=== PATIENT | female | born 1970 | race American Indian/Alaskan Native ===

== ENCOUNTER 2018-02-22 09:17 | Inpatient (IN) | payer MEDICAID ==
[2018-02-22 09:28] VITALS: BMI 28.1
--- NOTE | 2018-02-22 09:30 | C.PDOC ---
History Of Present Illness 48 y/o female with history of HTN and TIA presents to ED with c/o blurry vision, headache, lightheadedness, right arm numbness and chest pain since 7am today. Patient states she is compliant with medications, reports symptoms similar to previous TIA. Patient denies head trauma, nausea, vomiting, abdominal pain or any other complaints at this time. Time Seen by Provider: 02/22/18 09:20 Chief Complaint (Nursing): Chest Pain History Per: Patient History/Exam Limitations: no limitations Onset/Duration Of Symptoms: Days Current Symptoms Are (Timing): Still Present Past Medical History Reviewed: Historical Data, Nursing Documentation, Vital Signs - Medical History PMH: Asthma, HTN, TIA Surgical History: No Surg Hx Family History: States: No Known Family Hx - Social History Hx Alcohol Use: No Hx Substance Use: No - Immunization History Hx Tetanus Toxoid Vaccination: No Hx Influenza Vaccination: No Hx Pneumococcal Vaccination: No Review Of Systems Constitutional: Negative for: Fever, Chills Eyes: Positive for: Vision Change (blurry vision) Cardiovascular: Positive for: Chest Pain, Light Headedness Respiratory: Negative for: Cough, Shortness of Breath Gastrointestinal: Negative for: Nausea, Vomiting, Abdominal Pain Neurological: Positive for: Numbness (right arm), Headache. Negative for: Weakness, Incoordination, Change in Speech, Confusion Physical Exam - Physical Exam Appears: Non-toxic, No Acute Distress Skin: Warm, Dry, No Rash Head: Atraumatic, Normacephalic Eye(s): bilateral: Normal Inspection (No nystagmus) Oral Mucosa: Moist Neck: Supple Cardiovascular: Rhythm Regular Respiratory: Normal Breath Sounds, No Rales, No Rhonchi, No Wheezing Gastrointestinal/Abdominal: Soft, No Tenderness, No Guarding, No Rebound Back: Normal Inspection, No CVA Tenderness Extremity: Normal ROM, Capillary Refill (<2 seconds), No Deformity Extremity: Bilateral: Atraumatic Pulses: Left Dorsalis Pedis: Normal, Right Dorsalis Pedis: Normal Neurological/Psych: Oriented x3, Normal Speech, Normal Cognition, Normal Cranial Nerves, No Cerebellar Signs, Normal Motor, Normal Sensation, Other (Finger to nose normal, No focal deficits) Extremity: Right: No Drift, Left: No Drift, Upper: No Drift, Lower: No Drift ED Course And Treatment - Laboratory Results Result Diagrams: 02/22/18 09:48 02/22/18 09:48 ECG: Interpreted By Me, Viewed By Me ECG Rhythm: Sinus Rhythm Rate From EC (BPM) O2 Sat by Pulse Oximetry: 100 (RA) NIHSS Stroke Scale - Date/Time Evaluation Performed When Was NIHSS Performed: Baseline - How Severe is the Stoke Level of Consciousness: 0=Alert LOC to Questions: 0=Both comments correct LOC to commands: 0=Obeys both correctly Best Gaze: 0=Normal Visual: 0=No visual loss Facial: 0=Normal Motor Arm - Left: 0=No drift Motor Arm - Right: 0=No drift Motor Leg - Left: 0=No drift Motor Leg - Right: 0=No drift Limb Ataxia: 0=Absent Sensory: 0=Normal Best Language: 0=No aphasia Dysarthia: 0=Normal articulation Extinction & Inattention (Neglect): 0=Normal, no object Score: 0 Severity Of Stroke: 0= No Stroke Medical Decision Making Medical Decision Makin yr old F w/ hx of HTN, TIA p/w numbness, lightheadedness, parathesia to R hand similiar to previous TIA per PT. On exam NIHSS 0: no appreciable neuro deficits noted. Given Hx, and similiar feeling code stroke called. Pt notes she woke up like this. No dysarthia, dysphagia or odynophagia. No tremor, weakness or cerebellar abnl. No meningeal signs. Plan: Code stroke protocol initiated, CT head, ECG, Blood work, ECG ordered Progress: 9:45am- Spoke to Dr. Staley, requests patient have MRI with out contrast CT head w/o contrast IMPRESSION: No intracranial hemorrhage or mass effect. Right ethmoid and superior maxillary sinus inflammatory changes. Partial visualization of left sided sinus surgery changes 1121 MRI: Concern for MS: paged Dr. STALEY (Neuro) No indication for TPA given LOW NIHSS, and alt diagnosis of MS. Xray unremarkable. appreciate consult w/ Dr. Staley: to ab admitted for w/u for MS: we are to order mri w/ gila + lyme titers. labs otherwise unremarkable dr. hay Webb is primary. paged hospitalist distribution district supervisor [id number] appreciate consult w/ Hospitalist Dr. Ndiaye: accepts to her service for further w/u pt agreeable and in NAD. Disposition - Disposition Disposition: HOSPITALIZED Disposition Time: 12:06 Condition: GOOD - Clinical Impression Clinical Impression: Numbness and tingling - Scribe Statement The provider has reviewed the documentation as recorded by the Lolitaibmelvi Hercules All medical record entries made by the Migel were at my direction and personally dictated by me. I have reviewed the chart and agree that the record accurately reflects my personal performance of the history, physical exam, medical decision making, and the department course for this patient. I have also personally directed, reviewed, and agree with the discharge instructions and disposition.
[2018-02-22 09:54] LABS: BASO % 0.6 % (0.0-2.0); EOS # 0.1 K/uL (0.0-0.7); EOS % 3.2 % (0.0-4.0); HEMOGLOBIN 12.4 g/dL (11.0-16.0); LYMPH # 1.6 K/uL (1.0-4.3); LYMPH % 36.9 % (20.0-40.0); MEAN CELL VOLUME 92.1 fL (81.0-99.0); MEAN CORPUSCULAR HEMOGLOBIN 31.1 pg (27.0-31.0); MEAN CORPUSCULAR HGB CONC 33.8 g/dL (33.0-37.0); MEAN PLATELET VOLUME 9.1 fL (7.2-11.7); MONO # 0.3 K/uL (0.0-0.8); MONO % 5.9 % (0.0-10.0); NEUT # 2.3 K/uL (1.8-7.0); NEUT % 53.4 % (50.0-75.0); NRBC % 0.1 % (0.0-2.0); WHITE BLOOD COUNT 4.3 K/uL (4.8-10.8)
[2018-02-22 10:02] LABS: INR 1.1; PROTHROMBIN TIME 11.9 SECONDS (9.7-12.2)
--- NOTE | 2018-02-22 10:05 | CT ---
Date of service: 02/22/2018 PROCEDURE: CT HEAD WITHOUT CONTRAST. HISTORY: Code Stroke COMPARISON: 10/23/2015 TECHNIQUE: Axial computed tomography images were obtained through the head/brain without intravenous contrast. Radiation dose: Total exam DLP = 925.76 mGy-cm. This CT exam was performed using one or more of the following dose reduction techniques: Automated exposure control, adjustment of the mA and/or kV according to patient size, and/or use of iterative reconstruction technique. FINDINGS: HEMORRHAGE: No intracranial hemorrhage. BRAIN: No mass effect or edema. No atrophy or chronic microvascular ischemic changes. VENTRICLES: Unremarkable. No hydrocephalus. CALVARIUM: Unremarkable. PARANASAL SINUSES: Right ethmoidal sinus and probably partial superior right maxillary sinus inflammatory changes. Prior report noted left surgical changes over antrum. This portion of the left antrum is not visually included on this exam. MASTOID AIR CELLS: Unremarkable as visualized. No inflammatory changes. OTHER FINDINGS: None. IMPRESSION: No intracranial hemorrhage or mass effect. Right ethmoid and superior maxillary sinus inflammatory changes. Partial visualization of left sided sinus surgery changes
[2018-02-22 10:56] LABS: ALB/GLOB RATIO 1.3 (1.0-2.1); ALBUMIN 4.5 g/dL (3.5-5.0); ALT/SGPT 20 U/L (9-52); AST/SGOT 27 U/L (14-36); BLOOD UREA NITROGEN 17 mg/dL (7-17); CALCIUM 9.5 mg/dl (8.6-10.4); GFR NON-AFRICAN AMERICAN > 60; HDL CHOLESTEROL 47 mg/dL (30-70); LDL CHOLESTEROL 98 mg/dL (0-129)
--- NOTE | 2018-02-22 11:23 | MRI ---
Date of service: 02/22/2018 PROCEDURE: MRI BRAIN WITHOUT CONTRAST HISTORY: History of TIA. Right arm numbness. COMPARISON: Comparison made with CT scan of the brain obtained earlier same day comparison also made with prior MRI of the brain 10/24/2015. TECHNIQUE: Multiplanar, multisequence MR the images of the brain were obtained without intravenous contrast enhancement. FINDINGS: HEMORRHAGE: No acute parenchymal, subarachnoid nor extra-axial hemorrhage. No evidence of hemosiderin deposition identified on gradient echo weighted sequence.. DWI: No evidence of an acute or early subacute infarction seen on diffusion imaging. BRAIN PARENCHYMA: There are multiple small round and elliptical shaped focal areas of increased T2 signal seen scattered about the subcortical and to a lesser degree deep as well as periventricular (perifrontal horn) white matter bilaterally. These changes are nonspecific and although on could be vascular in origin, the possibility of a demyelinating disease process such as multiple sclerosis should be considered. Additional differential diagnostic considerations would include sequela of old trauma, migraine headaches or post infectious/inflammatory etiologies. No obvious parenchymal nor extra-axial mass or collection seen on this noncontrast study. VENTRICLES: No obstructive hydrocephalus. CRANIUM: Unremarkable. ORBITS: Orbits and contents grossly unremarkable. PARANASAL SINUSES/MASTOIDS: Suspect partial bilateral ethmoidectomy changes. Clinical correlation with surgical history is recommended.. There appears to be partial opacification right and possibly to a lesser degree few left-sided mastoid air cells. VASCULAR SYSTEM: Visualized major vascular flow voids at skull base patent. OTHER FINDINGS: None. IMPRESSION: No acute intracranial hemorrhage or infarct. There are numerous small focal areas of increased T2 signal scattered about the subcortical and to a lesser degree deep/periventricular white matter with minimal slightly confluent prolonged T2 signal changes in the periventricular (perifrontal horn) white matter. Rule out a demyelinating disease process such as multiple sclerosis. Additional differential diagnostic considerations would include chronic sequela of small vessel disease, old trauma, migraine headaches or post infectious/inflammatory etiologies.
--- NOTE | 2018-02-22 11:45 | RAD ---
Date of service: 02/22/2018 HISTORY: Code Stroke COMPARISON: Comparison chest 10/23/2015. FINDINGS: LUNGS: Poor inspiration with low lung volumes, mild crowded bronchovascular markings and mild bibasilar atelectasis.. PLEURA: No significant pleural effusion identified, no pneumothorax apparent. CARDIOVASCULAR: No aortic atherosclerotic calcification present. Normal cardiac size. No pulmonary vascular congestion. OSSEOUS STRUCTURES: No significant abnormalities. VISUALIZED UPPER ABDOMEN: Normal. OTHER FINDINGS: None. IMPRESSION: Poor inspiration with low lung volumes, mild crowded bronchovascular markings and mild bibasilar atelectasis...
[2018-02-22] MEDS ORDERED: Gadodiamide 287 mg/ml 20 ml IV ONE (13:40)
--- NOTE | 2018-02-22 14:30 | CP.PCM.HP ---
History of Present Illness - History of Present Illness History of Present Illness: Jinny Hernandez PGY1 H&P Pt is a 48yo F with PMH HTN and TIA (10/30) who presents to ED complaining of chest pain, and blurry vision since 7am this morning. She describes the chest pain as pressure like, rates it 8/10, and reports associated palpitations, shortness of breath, and nausea. She denies radiation of the pain. She says the chest pain has improved but not remitted entirely. She also complains of a pounding headache that she rated 7/10, that began 3 days ago but worsened this morning along with the other symptoms. She did not take any medication at home to relieve the symptoms, and reports continuation of the headache now. She reports previous history of those symptoms, last being 10/30 when she was dx with TIA. She reports blurry vision b/l, but denies previous history of this. She also reports a right sided facial droop, dysphagia, and numbness and tingling in her right arm and all the way down her right leg. She also reports right hand tightness. She denies any slurred speech, gait disturbances, loss of c onsciousness. She denies abdominal pain, diarrhea, dysuria, incontinence. In the ED, EKG showed NSR, CXR showed no active disease. Pt was given ASA 325mg. CT head showed no hemmorhage, but showed some nonspecific inflammation of R ethymoid and superior maxillary sinuses. MRI brain w/o contrast showed increased density in subcortical and periventricular white matter. SxH: FamH: mom- breast CA, heart disease SocH: denies tobacco, etoh, recreational drug use Allergies: NKDA Meds: metoprolol succinate 100 daily, lasix 20 daily, valsartan/HCTZ 160/12.5 daily, atorvastatin 10 daily, ASA 325 daily, multivitamin PMD: Virgil Present on Admission - Present on Admission Any Indicators Present on Admission: No Review of Systems - Review of Systems Review of Systems: as per HPI Past Patient History - Infectious Disease Hx of Infectious Diseases: None - Past Medical History & Family History Past Medical History?: Yes - Past Social History Smoking Status: Never Smoked - CARDIAC Hx Hypertension: Yes - PULMONARY Hx Asthma: Yes - NEUROLOGICAL Hx Transient Ischemic Attacks (TIA): Yes - HEENT Hx HEENT Problems: No Other/Comment: Wears Glasses - RENAL Hx Chronic Kidney Disease: No - ENDOCRINE/METABOLIC Hx Endocrine Disorders: No - HEMATOLOGICAL/ONCOLOGICAL Hx Blood Disorders: No - INTEGUMENTARY Hx Dermatological Problems: No - MUSCULOSKELETAL/RHEUMATOLOGICAL Hx Musculoskeletal Disorders: No Hx Falls: No - GASTROINTESTINAL Hx Gastrointestinal Disorders: No - GENITOURINARY/GYNECOLOGICAL Hx Genitourinary Disorders: No - PSYCHIATRIC Hx Substance Use: No - SURGICAL HISTORY Hx Surgeries: Yes Hx Section: Yes - ANESTHESIA Hx Anesthesia: Yes Meds Allergies/Adverse Reactions: Allergies Allergy/AdvReac Type Severity Reaction Status Date / Time No Known Allergies Allergy Verified 02/22/18 09:29 Physical Exam - Constitutional Appears: Well, No Acute Distress - Head Exam Head Exam: ATRAUMATIC, NORMOCEPHALIC - Eye Exam Eye Exam: EOMI, PERRL Pupil Exam: NORMAL ACCOMODATION Additional comments: nystagmus - Expanded Eye Exam Expanded Visual Acuity Right=20/: 100 Visual Acuity Left=20/: 70 - ENT Exam ENT Exam: Mucous Membranes Moist, Normal Exam - Neck Exam Neck exam: Positive for: Normal Inspection - Respiratory Exam Respiratory Exam: Clear to Auscultation Bilateral, NORMAL BREATHING PATTERN. absent: Rales, Rhonchi, Wheezes, Respiratory Distress - Cardiovascular Exam Cardiovascular Exam: REGULAR RHYTHM. absent: Gallop, Rubs, +S1, +S2, Systolic Murmur Additional comments: tenderness to palpation of left chest - GI/Abdominal Exam GI & Abdominal Exam: Normal Bowel Sounds, Soft. absent: Distended, Tenderness - Extremities Exam Extremities exam: Positive for: normal inspection. Negative for: pedal edema - Back Exam Back exam: NORMAL INSPECTION - Neurological Exam Neurological exam: Alert, Motor Sensory Deficit, Oriented x3, Reflexes Normal - Expanded Neurological Exam Expanded Cranial nerves: EOM's Intact: Normal, Facial Sensation: Abnormal Right, Nystagmus: Abnormal Left, Abnormal Right, Tongue Deviation: Normal Cerebellar Function: Finger to Nose: Normal Sensory exam: Lower Extremity Light Touch: Abnormal Right, Upper Extremity Light Touch: Abnormal Right Neuro motor strength exam: Left Upper Extremity: 5, Right Upper Extremity: 5, Left Lower Extremity: 5, Right Lower Extremity: 4 DTR: Brachioradialis Left: 2+, Brachioradialis Right: 2+, Tricep Left: 2+, Tricep Right: 2+ - Skin Skin Exam: Normal Color Results - Vital Signs Recent Vital Signs: Last Vital Signs Temp 97.9 F 02/22/18 13:00 Pulse 67 02/22/18 13:00 Resp 18 02/22/18 13:00 BP 145/86 02/22/18 13:00 Pulse Ox 98 02/22/18 13:00 - Labs Result Diagrams: 02/22/18 09:48 02/22/18 09:48 Labs: Laboratory Results - last 24 hr 02/22/18 02/22/18 02/22/18 09:43 09:48 09:48 WBC 4.3 L RBC 4.00 Hgb 12.4 Hct 36.8 MCV 92.1 MCH 31.1 H MCHC 33.8 RDW 15.0 H Plt Count 212 MPV 9.1 Neut % (Auto) 53.4 Lymph % (Auto) 36.9 Crane % (Auto) 5.9 Eos % (Auto) 3.2 Baso % (Auto) 0.6 Neut # (Auto) 2.3 Lymph # (Auto) 1.6 Crane # (Auto) 0.3 Eos # (Auto) 0.1 Baso # (Auto) 0.0 PT 11.9 INR 1.1 APTT 31 Sodium Potassium Chloride Carbon Dioxide Anion Gap BUN Creatinine Est GFR ( Amer) Est GFR (Non-Af Amer) POC Glucose (mg/dL) 101 Random Glucose Hemoglobin A1c Calcium Total Bilirubin AST ALT Alkaline Phosphatase Troponin I Total Protein Albumin Globulin Albumin/Globulin Ratio Triglycerides Cholesterol LDL Cholesterol Direct HDL Cholesterol Blood Type Antibody Screen 02/22/18 02/22/18 02/22/18 09:48 09:48 09:48 WBC RBC Hgb Hct MCV MCH MCHC RDW Plt Count MPV Neut % (Auto) Lymph % (Auto) Crane % (Auto) Eos % (Auto) Baso % (Auto) Neut # (Auto) Lymph # (Auto) Crane # (Auto) Eos # (Auto) Baso # (Auto) PT INR APTT Sodium 143 Potassium 3.7 Chloride 108 H Carbon Dioxide 26 Anion Gap 14 BUN 17 Creatinine 0.9 Est GFR ( Amer) > 60 Est GFR (Non-Af Amer) > 60 POC Glucose (mg/dL) Random Glucose 112 H Hemoglobin A1c 5.7 Calcium 9.5 Total Bilirubin 0.5 AST 27 ALT 20 Alkaline Phosphatase 74 Troponin I < 0.0120 Total Protein 8.0 Albumin 4.5 Globulin 3.4 Albumin/Globulin Ratio 1.3 Triglycerides 75 Cholesterol 163 LDL Cholesterol Direct 98 HDL Cholesterol 47 Blood Type O POSITIVE Antibody Screen Negative Assessment & Plan - Assessment and Plan (Free Text) Assessment: 48yo F with PMH HTN and TIA (10/30) who presents to ED complaining of chest pain, headache, and blurry vision admitted for further evaluation and treatment. Plan: Chest Pain, r/o ACS - EKG: NSR @71 bpm - f/u rpt EKG - trend BILL series q6h - f/u HbA1c - f/u lipid panel - pt on tele - f/u ECHO - Cardiology consulted, Dr. Veloz - f/u recs Abnormal MRI - h/o TIA (12/31) - CT head: no hemorrhage, superior maxillary and R ethymoid sinuses inflammation - MRI brain w/o contrast: increased denistiy in subcortical and periventricular white matter - MRI brain w/ contrast: multiple small round focal areas of increased T2 signals scattered about subcortical and deep withe matter. mild periventricular changes. no evidence of unusual meningeal enhancement. - ASA 325mg daily - crestor 2.5mg daily - neuro checks q4h - f/u lyme studies - Neurology consulted, Dr. Schreiber - f/u recs HTN - metoprolol succinate 100mg daily - lasix 20mg daily - losartan 100mg daily - HCTZ 12.5mg daily PPX GI: Pepcid 20mg PO BID DVT: SCDs HHD Case reviewed and plan discussed with Dr. Dozier
--- NOTE | 2018-02-22 14:47 | MRI ---
Date of service: 02/22/2018 PROCEDURE: MRI BRAIN WITH AND WITHOUT CONTRAST HISTORY: Per neuro: MS w/u the COMPARISON: Comparison made with prior CT scan and non contrast MRI of brain obtained earlier same day TECHNIQUE: Multiplanar, multisequence MR images of the brain were obtained with and without intravenous contrast enhancement. FINDINGS: HEMORRHAGE: No acute parenchymal, subarachnoid or extra-axial hemorrhage. No evidence of hemosiderin deposition identified on gradient echo weighted sequence. DWI: No evidence of an acute or early subacute infarction seen on diffusion imaging.. BRAIN PARENCHYMA: Multiple small round and elliptical shaped focal areas of increased T2 signal that were seen scattered about the subcortical and to a lesser degree deep periventricular white matter are again seen however demonstrate no discernible contrast enhancement. These foci (which are less well seen on this exam due to the lack of heavy T2 sequence) are of uncertain etiology though differential diagnosis would include chronic sequela of small vessel disease, demyelinating disease process such as multiple sclerosis,, migraine headaches, posttraumatic or post infectious/inflammatory etiologies. ENHANCEMENT: There are no focal areas of abnormal contrast enhancement within the substance of the brain. No evidence of unusual meningeal enhancement. VENTRICLES: No obstructive hydrocephalus.. CRANIUM: Unremarkable. ORBITS: Orbits and contents unremarkable. PARANASAL SINUSES/MASTOIDS: Previously suspected partial opacification right and possibly to a lesser degree left few left side mastoid air cells less well seen on this exam due to the lack of heavy T2 sequence. VASCULAR SYSTEM: Visualized major vascular flow voids at skull base patent. OTHER FINDINGS: . None. IMPRESSION: Previously noted multiple small round/elliptical shaped focal areas of increased T2 signal scattered about the subcortical and deep white matter as well as some mild periventricular changes less well seen on this study due to the lack of heavy T2 sequences however exhibit no discernible contrast enhancement.. No evidence of unusual meningeal enhancement.
[2018-02-22 14:56] VITALS: RESP 20
[2018-02-22] MEDS ORDERED: Naproxen 550 mg Tab PO PRN (17:08)
[2018-02-22] MEDS: Metoprolol Succinate 100 mg XL Tab PO SCH (17:23)
[2018-02-22 17:32] LABS: CK-MB 0.72 ng/mL (0.0-3.38)
--- NOTE | 2018-02-22 17:59 | CP.PCM.CON ---
History of Present Illness - History of Present Illness History of Present Illness: 48 yr old woman who came in as a code stroke, not a TPA candidate, who is now being diagnosed wtih MS according to neuroradiology reading. Miss Hogan is a woman who started having right facial numbness several days ago. She is not a tpa candidate due to unclear onset of symptoms and low NIHSS. MRI shows multiple enhancing lesions. She also complains of blurriness of vision, occasional headache. On exam today, she says that all her symptoms have resolved and that she is well. ROS: as above. PMH/pSH: Hypertension. FH/SH: has several children. Currently employed. Drinks occasionally, no tobacco All: nkda. On exam: Normal neurological examination. no deficits noted. Past Patient History - Infectious Disease Hx of Infectious Diseases: None - Past Medical History & Family History Past Medical History?: Yes - Past Social History Smoking Status: Never Smoked - CARDIAC Hx Hypertension: Yes - PULMONARY Hx Asthma: Yes - NEUROLOGICAL Hx Transient Ischemic Attacks (TIA): Yes - HEENT Hx HEENT Problems: No Other/Comment: Wears Glasses - RENAL Hx Chronic Kidney Disease: No - ENDOCRINE/METABOLIC Hx Endocrine Disorders: No - HEMATOLOGICAL/ONCOLOGICAL Hx Blood Disorders: No - INTEGUMENTARY Hx Dermatological Problems: No - MUSCULOSKELETAL/RHEUMATOLOGICAL Hx Musculoskeletal Disorders: No Hx Falls: No - GASTROINTESTINAL Hx Gastrointestinal Disorders: No - GENITOURINARY/GYNECOLOGICAL Hx Genitourinary Disorders: No - PSYCHIATRIC Hx Substance Use: No - SURGICAL HISTORY Hx Surgeries: Yes Hx Section: Yes - ANESTHESIA Hx Anesthesia: Yes Meds Allergies/Adverse Reactions: Allergies Allergy/AdvReac Type Severity Reaction Status Date / Time No Known Allergies Allergy Verified 02/22/18 09:29 - Medications Medications: Current Medications Aspirin (Aspirin) 325 mg PO DAILY [facility] Famotidine (Pepcid) 20 mg PO BID [facility] Last Admin: 02/22/18 17:22 Dose: 20 mg Furosemide (Lasix) 20 mg PO DAILY [facility] Last Admin: 02/22/18 17:23 Dose: 20 mg Hydrochlorothiazide (Microzide) 12.5 mg PO DAILY [facility] Last Admin: 02/22/18 17:23 Dose: 12.5 mg Losartan Potassium (Cozaar) 100 mg PO DAILY [facility] Last Admin: 02/22/18 17:22 Dose: 100 mg Metoprolol Succinate (Toprol Xl) 100 mg PO DAILY [facility] Last Admin: 02/22/18 17:23 Dose: 100 mg Naproxen (Anaprox Ds) 550 mg PO Q12H PRN PRN Reason: Pain, moderate (4-7) Rosuvastatin Calcium (Crestor) 2.5 mg PO HS [facility] Results - Vital Signs Recent Vital Signs: Last Vital Signs Temp 98.3 F 02/22/18 15:06 Pulse 59 L 02/22/18 15:06 Resp 20 02/22/18 15:06 BP 127/87 02/22/18 17:23 Pulse Ox 100 02/22/18 15:30 - Labs Result Diagrams: 02/23/18 08:29 02/23/18 04:32 Labs: Laboratory Results - last 24 hr 02/22/18 02/22/18 02/22/18 09:43 09:48 09:48 WBC 4.3 L RBC 4.00 Hgb 12.4 Hct 36.8 MCV 92.1 MCH 31.1 H MCHC 33.8 RDW 15.0 H Plt Count 212 MPV 9.1 Neut % (Auto) 53.4 Lymph % (Auto) 36.9 [place] % (Auto) 5.9 Eos % (Auto) 3.2 Baso % (Auto) 0.6 Neut # (Auto) 2.3 Lymph # (Auto) 1.6 [place] # (Auto) 0.3 Eos # (Auto) 0.1 Baso # (Auto) 0.0 PT 11.9 INR 1.1 APTT 31 Sodium Potassium Chloride Carbon Dioxide Anion Gap BUN Creatinine Est GFR ( Amer) Est GFR (Non-Af Amer) POC Glucose (mg/dL) 101 Random Glucose Hemoglobin A1c Calcium Total Bilirubin AST ALT Alkaline Phosphatase Total Creatine Kinase CK-MB (Mass) Troponin I Total Protein Albumin Globulin Albumin/Globulin Ratio Triglycerides Cholesterol LDL Cholesterol Direct HDL Cholesterol Blood Type Antibody Screen 02/22/18 02/22/18 02/22/18 09:48 09:48 09:48 WBC RBC Hgb Hct MCV MCH MCHC RDW Plt Count MPV Neut % (Auto) Lymph % (Auto) [place] % (Auto) Eos % (Auto) Baso % (Auto) Neut # (Auto) Lymph # (Auto) [place] # (Auto) Eos # (Auto) Baso # (Auto) PT INR APTT Sodium 143 Potassium 3.7 Chloride 108 H Carbon Dioxide 26 Anion Gap 14 BUN 17 Creatinine 0.9 Est GFR ( Amer) > 60 Est GFR (Non-Af Amer) > 60 POC Glucose (mg/dL) Random Glucose 112 H Hemoglobin A1c 5.7 Calcium 9.5 Total Bilirubin 0.5 AST 27 ALT 20 Alkaline Phosphatase 74 Total Creatine Kinase CK-MB (Mass) Troponin I < 0.0120 Total Protein 8.0 Albumin 4.5 Globulin 3.4 Albumin/Globulin Ratio 1.3 Triglycerides 75 Cholesterol 163 LDL Cholesterol Direct 98 HDL Cholesterol 47 Blood Type O POSITIVE Antibody Screen Negative 02/22/18 16:50 WBC RBC Hgb Hct MCV MCH MCHC RDW Plt Count MPV Neut % (Auto) Lymph % (Auto) [place] % (Auto) Eos % (Auto) Baso % (Auto) Neut # (Auto) Lymph # (Auto) [place] # (Auto) Eos # (Auto) Baso # (Auto) PT INR APTT Sodium Potassium Chloride Carbon Dioxide Anion Gap BUN Creatinine Est GFR ( Amer) Est GFR (Non-Af Amer) POC Glucose (mg/dL) Random Glucose Hemoglobin A1c Calcium Total Bilirubin AST ALT Alkaline Phosphatase Total Creatine Kinase 221 H CK-MB (Mass) 0.72 Troponin I < 0.0120 Total Protein Albumin Globulin Albumin/Globulin Ratio Triglycerides Cholesterol LDL Cholesterol Direct HDL Cholesterol Blood Type Antibody Screen Assessment & Plan - Assessment and Plan (Free Text) Assessment: MRI Brain: shows several nonenhancing lesions in the periventricular region, thought to be MS. CT Head: normal. A/p: 48 yr old woman who may have MS, with acute exacerbation now. Plan: 1. Give one dose of 1gm IV solumedrol 2. GI prophylaxis 3. Upon discharge, this patient should follow with [facility] Thank you Dr. falcon Neurology
[2018-02-22] MEDS ORDERED: Rosuvastatin Calcium 2.5 mg Tab PO SCH (22:00)
[2018-02-23 00:31] VITALS: O2SAT 96
[2018-02-23 00:59] LABS: CK-MB 0.71 ng/mL (0.0-3.38)
[2018-02-23 04:59] LABS: ALB/GLOB RATIO 1.3 (1.0-2.1); ALBUMIN 4.1 g/dL (3.5-5.0); ALT/SGPT 26 U/L (9-52); AST/SGOT 23 U/L (14-36); BLOOD UREA NITROGEN 12 mg/dL (7-17); CALCIUM 9.2 mg/dl (8.6-10.4); GFR NON-AFRICAN AMERICAN 59
[2018-02-23] MEDS ORDERED: Potassium Chloride 20 mEq ER Tab PO ONE (05:58)
[2018-02-23 08:44] LABS: BASO % 0.6 % (0.0-2.0); EOS # 0.2 K/uL (0.0-0.7); EOS % 4.4 % (0.0-4.0); HEMOGLOBIN 11.9 g/dL (11.0-16.0); LYMPH # 1.8 K/uL (1.0-4.3); LYMPH % 51.1 % (20.0-40.0); MEAN CORPUSCULAR HEMOGLOBIN 31.3 pg (27.0-31.0); MEAN CORPUSCULAR HGB CONC 34.4 g/dL (33.0-37.0); MONO # 0.3 K/uL (0.0-0.8); MONO % 7.5 % (0.0-10.0); NEUT # 1.3 K/uL (1.8-7.0); NEUT % 36.4 % (50.0-75.0); RBC 3.79 Mil/uL (3.80-5.20); WHITE BLOOD COUNT 3.6 K/uL (4.8-10.8)
[2018-02-23 08:54] LABS: INR 1.2; PROTHROMBIN TIME 12.6 SECONDS (9.7-12.2)
[2018-02-23 09:11] VITALS: PULSE 53; TEMP 97.9
--- NOTE | 2018-02-23 09:41 | CP.PCM.PN ---
Subjective - Date & Time of Evaluation Date of Evaluation: 02/23/18 Time of Evaluation: 09:41 Objective - Vital Signs/Intake and Output Vital Signs (last 24 hours): Temp Pulse Resp BP Pulse Ox 97.9 F 53 L 20 131/82 96 02/23/18 09:09 02/23/18 09:09 02/23/18 09:09 02/23/18 09:09 02/23/18 09:09 - Medications Medications: Current Medications Aspirin (Aspirin) 325 mg PO DAILY [facility] Famotidine (Pepcid) 20 mg PO BID [facility] Last Admin: 02/22/18 17:22 Dose: 20 mg Furosemide (Lasix) 20 mg PO DAILY [facility] Last Admin: 02/22/18 17:23 Dose: 20 mg Heparin Sodium (Porcine) (Heparin) 5,000 units SC Q12H [facility] Hydrochlorothiazide (Microzide) 12.5 mg PO DAILY [facility] Last Admin: 02/22/18 17:23 Dose: 12.5 mg Losartan Potassium (Cozaar) 100 mg PO DAILY [facility] Last Admin: 02/22/18 17:22 Dose: 100 mg Metoprolol Succinate (Toprol Xl) 100 mg PO DAILY [facility] Last Admin: 02/22/18 17:23 Dose: 100 mg Naproxen (Anaprox Ds) 550 mg PO Q12H PRN PRN Reason: Pain, moderate (4-7) Rosuvastatin Calcium (Crestor) 2.5 mg PO HS [facility] Last Admin: 02/22/18 21:26 Dose: 2.5 mg - Labs Labs: 02/23/18 08:29 02/23/18 04:32 PT 12.6 SECONDS (9.7-12.2) H 02/23/18 08:29 INR 1.2 02/23/18 08:29 APTT 31 SECONDS (21-34) 02/23/18 08:29
[2018-02-23] MEDS: Metoprolol Succinate 100 mg XL Tab PO SCH (10:25)
[2018-02-23 10:33] VITALS: BP 131/80
--- NOTE | 2018-02-23 16:19 | CP.PCM.DIS ---
<Olayinka Bucio - Last Filed: 02/23/18 16:11> Provider - Provider Date of Admission: 02/22/18 12:05 Attending physician: Ranjana Ndiaye MD Time Spent in preparation of Discharge (in minutes): 45 Diagnosis - Discharge Diagnosis (1) Chest pain Status: Resolved (2) Multiple sclerosis Status: Chronic (3) Numbness and tingling Status: Chronic Hospital Course - Lab Results Lab Results: Most Recent Lab Values WBC 3.6 K/uL (4.8-10.8) L 02/23/18 08:29 RBC 3.79 Mil/uL (3.80-5.20) L 02/23/18 08:29 Hgb 11.9 g/dL (11.0-16.0) 02/23/18 08: Hct 34.5 % (34.0-47.0) 02/23/18 08: MCV 91.0 fL (81.0-99.0) 02/23/18 08: MCH 31.3 pg (27.0-31.0) H 02/23/18 08: MCHC 34.4 g/dL (33.0-37.0) 02/23/18 08: RDW 15.0 % (11.5-14.5) H 02/23/18 08: Plt Count 211 K/uL (130-400) 02/23/18 08:29 MPV 10.0 fL (7.2-11.7) 02/23/18 08: Neut % (Auto) 36.4 % (50.0-75.0) L 02/23/18 08: Lymph % (Auto) 51.1 % (20.0-40.0) H 02/23/18 08: [place] % (Auto) 7.5 % (0.0-10.0) 02/23/18 08: Eos % (Auto) 4.4 % (0.0-4.0) H 02/23/18 08:29 Baso % (Auto) 0.6 % (0.0-2.0) 02/23/18 08: Neut # (Auto) 1.3 K/uL (1.8-7.0) L 02/23/18 08:29 Lymph # (Auto) 1.8 K/uL (1.0-4.3) 02/23/18 08:29 [place] # (Auto) 0.3 K/uL (0.0-0.8) 02/23/18 08:29 Eos # (Auto) 0.2 K/uL (0.0-0.7) 02/23/18 08:29 Baso # (Auto) 0.0 K/uL (0.0-0.2) 02/23/18 08:29 PT 12.6 SECONDS (9.7-12.2) H 02/23/18 08:29 INR 1.2 02/23/18 08:29 APTT 31 SECONDS (21-34) 02/23/18 08:29 Sodium 140 mmol/L (132-148) 02/23/18 04:32 Potassium 3.4 mmol/L (3.6-5.2) L 02/23/18 04:32 Chloride 107 mmol/L (98-107) 02/23/18 04:32 Carbon Dioxide 24 mmol/L (22-30) 02/23/18 04:32 Anion Gap 13 (10-20) 02/23/18 04:32 BUN 12 mg/dL (7-17) 02/23/18 04:32 Creatinine 1.0 mg/dL (0.7-1.2) 02/23/18 04:32 Est GFR ( Amer) > 60 02/23/18 04:32 Est GFR (Non-Af Amer) 59 02/23/18 04:32 POC Glucose (mg/dL) 101 mg/dL (65-110) 02/22/18 09:43 Random Glucose 105 mg/dL (65-105) 02/23/18 04:32 Hemoglobin A1c 5.7 % (4.2-6.5) 02/22/18 16:50 Calcium 9.2 mg/dl (8.6-10.4) 02/23/18 04:32 Total Bilirubin 0.6 mg/dL (0.2-1.3) 02/23/18 04:32 AST 23 U/L (14-36) 02/23/18 04:32 ALT 26 U/L (9-52) 02/23/18 04:32 Alkaline Phosphatase 76 U/L (38-126) 02/23/18 04:32 Total Creatine Kinase 159 U/L (30-135) H 02/23/18 04:32 CK-MB (Mass) 0.60 ng/mL (0.0-3.38) 02/23/18 04:32 Troponin I < 0.0120 ng/mL (0.00-0.120) 02/23/18 04:32 Total Protein 7.2 g/dL (6.3-8.3) 02/23/18 04:32 Albumin 4.1 g/dL (3.5-5.0) 02/23/18 04:32 Globulin 3.1 gm/dL (2.2-3.9) 02/23/18 04:32 Albumin/Globulin Ratio 1.3 (1.0-2.1) 02/23/18 04:32 Triglycerides 75 mg/dL (0-149) 02/22/18 09:48 Cholesterol 163 mg/dL (0-199) 02/22/18 09:48 LDL Cholesterol Direct 98 mg/dL (0-129) 02/22/18 09:48 HDL Cholesterol 47 mg/dL (30-70) 02/22/18 09:48 Blood Type O POSITIVE 02/22/18 09:48 Antibody Screen Negative 02/22/18 09:48 - Hospital Course Hospital Course: Pt is a 48yo F with PMH HTN and TIA (10/30) who presents to ED complaining of chest pain, and blurry vision since 7am this morning. She describes the chest pain as pressure like, rates it 8/10, and reports associated palpitations, shortness of breath, and nausea. In the ED, EKG showed NSR, CXR showed no active disease. Pt was given ASA 325mg. Troponins were negative x 3. Over the course of her stay, patient was also treated with pepcid, lasix, hydrochlothiazide, losartan, metoprolol, and crestor. CT head showed no hemorrhage, but showed some nonspecific inflammation of R ethmoid and superior maxillary sinuses. MRI brain w/o contrast showed increased density in subcortical and periventricular white matter. Neurology (Dr. Falcon) was consulted and instructed patient to follow up at [facility] [place] outpatient. Upon discharge, patient was instructed to resume her home medications. To follow up with her PMD within one week of discharge and also to make an appointment at [facility], she wa s given information and phone number to make an appointment. She was instructed to avoid driving since she still has blurry vision and to return to the ED for worsening or newly concerning symptoms. Patient is medically stable for discharge to home. Discharge Exam - Head Exam Head Exam: ATRAUMATIC, NORMOCEPHALIC - Additional Findings Additional findings: - Constitutional Appears: Well, No Acute Distress - Head Exam Head Exam: ATRAUMATIC, NORMOCEPHALIC - Eye Exam Eye Exam: EOMI, PERRL Pupil Exam: NORMAL ACCOMODATION Additional comments: nystagmus - Expanded Eye Exam Expanded Visual Acuity Right=20/: 100 Visual Acuity Left=20/: 70 - ENT Exam ENT Exam: Mucous Membranes Moist, Normal Exam - Neck Exam Neck exam: Positive for: Normal Inspection - Respiratory Exam Respiratory Exam: Clear to Auscultation Bilateral, NORMAL BREATHING PATTERN. absent: Rales, Rhonchi, Wheezes, Respiratory Distress - Cardiovascular Exam Cardiovascular Exam: REGULAR RHYTHM. absent: Gallop, Rubs, +S1, +S2, Systolic Murmur Additional comments: tenderness to palpation of left chest - GI/Abdominal Exam GI & Abdominal Exam: Normal Bowel Sounds, Soft. absent: Distended, Tenderness - Extremities Exam Extremities exam: Positive for: normal inspection. Negative for: pedal edema - Back Exam Back exam: NORMAL INSPECTION - Neurological Exam Neurological exam: Alert, Motor Sensory Deficit, Oriented x3, Reflexes Normal Discharge Plan - Follow Up Plan Condition: GOOD Disposition: HOME/ ROUTINE Instructions: Heart Healthy Diet, Chest Pain (DC), Headache, Adult (DC) Additional Instructions: 1. Resume all home medications as prescribed by your primary care doctor. 2. Follow up with your primary care doctor within one week of discharge 3. Follow up and make an appointment at [facility]: [address], [place] [address] 4. Resume diet and exercise as tolerated. Please refrain from driving until you see your primary care doctor as you have blurry vision. 5. Return to the emergency room for worsening or newly concerning symptoms. Referrals: Nicole Garcia MD [Staff Provider] - <Ranjana Ndiaye - Last Filed: 02/23/18 17:55> Provider - Provider Date of Admission: 02/22/18 12:05 Attending physician: Ranjana Ndiaye MD Hospital Course - Lab Results Lab Results: Most Recent Lab Values WBC 3.6 K/uL (4.8-10.8) L 02/23/18 08: RBC 3.79 Mil/uL (3.80-5.20) L 02/23/18 08: Hgb 11.9 g/dL (11.0-16.0) 02/23/18 08: Hct 34.5 % (34.0-47.0) 02/23/18 08: MCV 91.0 fL (81.0-99.0) 02/23/18 08: MCH 31.3 pg (27.0-31.0) H 02/23/18 08: MCHC 34.4 g/dL (33.0-37.0) 02/23/18 08: RDW 15.0 % (11.5-14.5) H 02/23/18 08: Plt Count 211 K/uL (130-400) 02/23/18 08: MPV 10.0 fL (7.2-11.7) 02/23/18 08: Neut % (Auto) 36.4 % (50.0-75.0) L 02/23/18: Lymph % (Auto) 51.1 % (20.0-40.0) H 02/23/18 08: [place] % (Auto) 7.5 % (0.0-10.0) 02/23/18 08: Eos % (Auto) 4.4 % (0.0-4.0) H 02/23/18 08: Baso % (Auto) 0.6 % (0.0-2.0) 02/23/18: Neut # (Auto) 1.3 K/uL (1.8-7.0) L 02/23/18: Lymph # (Auto) 1.8 K/uL (1.0-4.3) 02/23/18 08: [place] # (Auto) 0.3 K/uL (0.0-0.8) 02/23/18 08: Eos # (Auto) 0.2 K/uL (0.0-0.7) 02/23/18 08:29 Baso # (Auto) 0.0 K/uL (0.0-0.2) 02/23/18 08:29 PT 12.6 SECONDS (9.7-12.2) H 02/23/18 08:29 INR 1.2 02/23/18 08:29 APTT 31 SECONDS (21-34) 02/23/18 08:29 Sodium 140 mmol/L (132-148) 02/23/18 04:32 Potassium 3.4 mmol/L (3.6-5.2) L 02/23/18 04:32 Chloride 107 mmol/L (98-107) 02/23/18 04:32 Carbon Dioxide 24 mmol/L (22-30) 02/23/18 04:32 Anion Gap 13 (10-20) 02/23/18 04:32 BUN 12 mg/dL (7-17) 02/23/18 04:32 Creatinine 1.0 mg/dL (0.7-1.2) 02/23/18 04:32 Est GFR ( Amer) > 60 02/23/18 04:32 Est GFR (Non-Af Amer) 59 02/23/18 04:32 POC Glucose (mg/dL) 101 mg/dL (65-110) 02/22/18 09:43 Random Glucose 105 mg/dL (65-105) 02/23/18 04:32 Hemoglobin A1c 5.7 % (4.2-6.5) 02/22/18 16:50 Calcium 9.2 mg/dl (8.6-10.4) 02/23/18 04:32 Total Bilirubin 0.6 mg/dL (0.2-1.3) 02/23/18 04:32 AST 23 U/L (14-36) 02/23/18 04:32 ALT 26 U/L (9-52) 02/23/18 04:32 Alkaline Phosphatase 76 U/L (38-126) 02/23/18 04:32 Total Creatine Kinase 159 U/L (30-135) H 02/23/18 04:32 CK-MB (Mass) 0.60 ng/mL (0.0-3.38) 02/23/18 04:32 Troponin I < 0.0120 ng/mL (0.00-0.120) 02/23/18 04:32 Total Protein 7.2 g/dL (6.3-8.3) 02/23/18 04:32 Albumin 4.1 g/dL (3.5-5.0) 02/23/18 04:32 Globulin 3.1 gm/dL (2.2-3.9) 02/23/18 04:32 Albumin/Globulin Ratio 1.3 (1.0-2.1) 02/23/18 04:32 Triglycerides 75 mg/dL (0-149) 02/22/18 09:48 Cholesterol 163 mg/dL (0-199) 02/22/18 09:48 LDL Cholesterol Direct 98 mg/dL (0-129) 02/22/18 09:48 HDL Cholesterol 47 mg/dL (30-70) 02/22/18 09:48 Blood Type O POSITIVE 02/22/18 09:48 Antibody Screen Negative 02/22/18 09:48 Attending/Attestation - Attestation I have personally seen and examined this patient.: Yes I have fully participated in the care of the patient.: Yes I have reviewed all pertinent clinical information, including history, physical exam and plan: Yes Notes (Text): discharge plan discussed with the patient spoke to Dr falcon 02/23/18 17:55
[2018-02-23 19:08] LABS: LYME IGG NEGATIVE (NEGATIVE)
[2018-02-23 21:34] LABS: LYME IGM NEGATIVE (NEGATIVE)
--- NOTE | 2018-02-23 23:27 | CARD ---
APPROVED REPORT Date of service: 02/23/2018 EXAM: Two-dimensional and M-mode echocardiogram with Doppler and color Doppler. Other Information Quality : GoodRhythm : INDICATION CVA/TIA Dyspnea Chest Pain Palpitations ASTMA RISK FACTORS Hypertension 2D DIMENSIONS IVSd0.6 (0.7-1.1cm)Aortic Root (2D)2.5 (2.0-3.7cm) LVDd4.5 (3.9-5.9cm)PWd0.8 (0.7-1.1cm) LA Qezgdz29 (18-58mL)LVDs2.7 (2.5-4.0cm) FS (%) 41.1 %LVEF (%)72.1 (>50%) LVEF (Wiggins's)72 %IVC0.00 cm M-Mode DIMENSIONS Left Atrium (MM)3.80 (2.5-4.0cm)IVSd0.79 (0.7-1.1cm) Aortic Root2.61 (2.2-3.7cm)LVDd4.83 (4.0-5.6cm) Aortic Cusp Exc.1.88 (1.5-2.0cm)PWd0.64 (0.7-1.1cm) FS (%) 45 %LVDs2.64 (2.0-3.8cm) LVEF (%)77 (>50%) Mitral Valve MV E Dvltozix280.2cm/sMV A Gkoqeugt78.2cm/sE/A ratio1.3 TDI Lateral E' Peak V10.74cm/sMedial E' Peak V6.93cm/sE/Lateral E'9.7 E/Medial E'15.0 Tricuspid Valve TR Peak Kfrnmavc294xg/sTR Peak Gr.[id number] LEFT VENTRICLE The left ventricle is normal size. There is normal left ventricular wall thickness. The left ventricular function is normal. The left ventricular ejection fraction is within the normal range. There is normal LV segmental wall motion. Transmitral Doppler flow pattern is Grade I-abnormal relaxation pattern. RIGHT VENTRICLE The right ventricle is normal size. There is normal right ventricular wall thickness. The right ventricular systolic function is normal. ATRIA The left atrium size is normal. The right atrium size is normal. AORTIC VALVE The aortic valve is normal in structure. No aortic regurgitation is present. There is no aortic valvular stenosis. MITRAL VALVE The mitral valve is normal in structure. There is no evidence of mitral valve prolapse. There is no mitral valve stenosis. There is no mitral valve regurgitation noted. TRICUSPID VALVE The tricuspid valve is normal in structure. There is trace tricuspid regurgitation. PULMONIC VALVE The pulmonary valve is normal in structure. There is trace pulmonic valvular regurgitation. GREAT VESSELS The aortic root is normal in size. The IVC is normal in size and collapses >50% with inspiration. PERICARDIAL EFFUSION There is no pericardial effusion. <Conclusion> The left ventricle is normal size. There is normal left ventricular wall thickness. The left ventricular function is normal. The left ventricular ejection fraction is within the normal range. There is normal LV segmental wall motion. Transmitral Doppler flow pattern is Grade I-abnormal relaxation pattern.
--- NOTE | 2018-02-23 23:55 | CARD ---
APPROVED REPORT Date of service: 02/22/2018 EKG Measurement Heart [id number] <Conclusion> Normal sinus rhythm with sinus arrhythmia Normal ECG
== END 2018-02-23 14:51 | disposition home or self-care (01) | DRG 43 ==
LOC: C.ER 09:17 → C.6T 12:05
PROVIDERS: ADMIT Internal Medicine; ATTEND Internal Medicine
DX: G35 Multiple sclerosis (principal); I10 Essential (primary) hypertension; J45.909 Unspecified asthma, uncomplicated; Z86.73 Personal history of transient ischemic attack (TIA), and cerebral infarction without residual deficits; R20.2 Paresthesia of skin; R07.9 Chest pain, unspecified

== ENCOUNTER 2018-03-24 13:45 | Emergency (ER) | payer SELFPAY ==
[2018-03-24 13:55] VITALS: BMI 28.3
--- NOTE | 2018-03-24 14:11 | C.PDOC ---
History Of Present Illness 48 y/o female pt presents to the ER complaining of pins and needles on left head, arm and legs along with weakness. Pt reports weakness appears after exertion. Pt was discharged by [facility] 3 weeks ago with presumptive diagnosis of MS. Dr. Schreiber neurologist refers pt to MS center. She has appointment on May 31. Pt denies SOB, fever, chills, nausea, vomiting and difficulty walking Time Seen by Provider: 03/24/18 14:01 Chief Complaint (Nursing): Headache History Per: Patient History/Exam Limitations: no limitations Onset/Duration Of Symptoms: Days Current Symptoms Are (Timing): Still Present Past Medical History Reviewed: Historical Data, Nursing Documentation, Vital Signs Vital Signs: Last Vital Signs Temp 98.2 F 03/24/18 13:49 Pulse 71 03/24/18 13:49 Resp 18 03/24/18 13:49 BP 168/102 H 03/24/18 13:49 Pulse Ox 97 03/24/18 13:49 - Medical History PMH: Asthma, HTN, TIA Family History: States: Unknown Family Hx - Social History Hx Alcohol Use: No Hx Substance Use: No - Immunization History Hx Tetanus Toxoid Vaccination: No Hx Influenza Vaccination: No Hx Pneumococcal Vaccination: No Review Of Systems Except As Marked, All Systems Reviewed And Found Negative. Constitutional: Negative for: Fever, Chills, Other (difficulty walking) Respiratory: Negative for: Shortness of Breath Gastrointestinal: Negative for: Nausea, Vomiting Neurological: Positive for: Weakness (left head, arm and legs ), Other (pins and needles on left side of head, arms and legs ) Physical Exam - Physical Exam Appears: Non-toxic, No Acute Distress Skin: Warm, Dry, No Rash Head: Normacephalic Eye(s): bilateral: Normal Inspection, PERRL, EOMI Chest: Symmetrical Cardiovascular: Rhythm Regular Respiratory: Normal Breath Sounds Gastrointestinal/Abdominal: Soft, No Tenderness Extremity: Normal ROM (x4), No Tenderness, No Pedal Edema, No Calf Tenderness, Capillary Refill (<2 sec), No Deformity, No Swelling Extremity: Bilateral: Atraumatic, Normal Color And Temperature Neurological/Psych: Oriented x3, Normal Speech, No Other (neuro deficit ) Gait: Steady ED Course And Treatment O2 Sat by Pulse Oximetry: 97 (RA) Pulse Ox Interpretation: Normal Medical Decision Making Medical Decision Making: Plans: -- Solu-medrol Discussed with Dr. Schreiber and he suggested to give pt 1 gram of Solu-medrol Disposition Discussed With .: Jennifer Schreiber Counseled Patient/Family Regarding: Diagnosis, Need For Followup - Disposition Referrals: Malik Styles MD [Staff Provider] - Disposition: HOME/ ROUTINE Disposition Time: 16:22 Condition: STABLE Forms: [facility] (Estonian), General Discharge Instructions - Clinical Impression Clinical Impression: Headache, Multiple sclerosis, Paresthesia - Scribe Statement The provider has reviewed the documentation as recorded by the Migel Colunga Do Provider Attestation: All medical record entries made by the Scribe were at my direction and personally dictated by me. I have reviewed the chart and agree that the record accurately reflects my personal performance of the history, physical exam, medical decision making, and the department course for this patient. I have also personally directed, reviewed, and agree with the discharge instructions and disposition.
[2018-03-24] MEDS ORDERED: MethylPREDNISolone 1 gm Vial IV ONE (14:22)
[2018-03-24] MEDS ORDERED: methylPREDNISolone 1 GM in Sodium Chloride 0.9% 250 ML IV ONE (15:00)
[2018-03-24 16:00] VITALS: BP 123/83; PULSE 77; RESP 20; TEMP 97.7
[2018-03-24 16:31] VITALS: O2SAT 97
== END 2018-03-24 17:20 | disposition home or self-care (01) ==
LOC: C.ER 13:45
DX: G35 Multiple sclerosis (principal); R20.2 Paresthesia of skin; R51 Headache; I10 Essential (primary) hypertension; Z86.73 Personal history of transient ischemic attack (TIA), and cerebral infarction without residual deficits
CPT/HCPCS: 96365; 96366; 99285; J2930

== ENCOUNTER 2018-04-30 13:12 | Inpatient (IN) | payer MEDICAID ==
[2018-04-30 13:12] VITALS: BMI 28.3
[~2018-04-30 13:12] MED LIST: Gadodiamide 287 MG/ML VIAL (15ML) IV ONE
--- NOTE | 2018-04-30 14:24 | RAD ---
Date of service: 04/30/2018 PROCEDURE: CHEST RADIOGRAPH, 1 VIEW HISTORY: MS exacerbation COMPARISON: 02/22/2018 FINDINGS: LUNGS: Clear. PLEURA: No pneumothorax or pleural fluid seen. CARDIOVASCULAR: No aortic atherosclerotic calcification present. Normal. OSSEOUS STRUCTURES: No significant abnormalities. VISUALIZED UPPER ABDOMEN: Normal. OTHER FINDINGS: None. IMPRESSION: No active disease.
--- NOTE | 2018-04-30 14:58 | C.PDOC ---
History Of Present Illness Patient is a 48 year old female, with a PMHx of multiple sclerosis, presenting to the ED c/o left face and right arm and foot paresthesia and pain that has been present for the past 2 to 3 days. Patient states that her symptoms feel like "pins and needles." Patient denies any focal weakness, sensory deficits, falls, or injuries. Time Seen by Provider: 04/30/18 13:52 Chief Complaint (Nursing): Upper Extremity Problem/Injury History Per: Patient History/Exam Limitations: no limitations Onset/Duration Of Symptoms: Days (2 to 3) Current Symptoms Are (Timing): Still Present Recent travel outside of the [place]: No Additional History Per: Patient Past Medical History Reviewed: Historical Data, Nursing Documentation, Vital Signs Vital Signs: Last Vital Signs Temp 98.1 F 04/30/18 13:42 Pulse 67 04/30/18 13:42 Resp 18 04/30/18 13:42 BP 150/90 04/30/18 13:42 Pulse Ox 100 04/30/18 13:42 - Medical History PMH: Asthma, HTN, TIA Denies: Chronic Kidney Disease Surgical History: No Surg Hx Family History: States: Unknown Family Hx - Social History Hx Alcohol Use: No Hx Substance Use: No - Immunization History Hx Tetanus Toxoid Vaccination: No Hx Influenza Vaccination: No Hx Pneumococcal Vaccination: No Review Of Systems Musculoskeletal: Positive for: Other Neurological: Negative for: Other (no focal deficits or sensory changes. Paresthesia of left face, right arm, right foot ) Physical Exam - Physical Exam Appears: Non-toxic, No Acute Distress, Other (Mild exacerbations ) Skin: Normal Color, Warm, Dry Head: Atraumatic, Normacephalic Eye(s): bilateral: Other (mild subjective diplopia baseline intact ) Oral Mucosa: Moist Neck: Normal ROM, Supple Chest: Symmetrical, No Deformity Cardiovascular: Rhythm Regular, No Murmur Respiratory: Normal Breath Sounds, No Rales, No Rhonchi, No Wheezing Neurological/Psych: Oriented x3, Normal Speech, Normal Cognition, Other (Neuro intact ) ED Course And Treatment - Laboratory Results Result Diagrams: 04/30/18 15:06 04/30/18 15:06 Lab Interpretation: Normal (ua neg) Urine POC: Negative ECG: Interpreted By Me, Viewed By Me ECG Rhythm: Sinus Rhythm Rate From EC O2 Sat by Pulse Oximetry: 100 (on RA) Pulse Ox Interpretation: Normal - Other Rad CXR X-Ray: Interpreted by Me, Viewed By Me, Read By Radiologist Interpretation: IMPRESSION: No active disease. - Physician Consult Information Outcome Of Conversation: 1415; d/w Dr. Maravilla- recommends inpt Neuro Client Engagement Manager to guide inpt tx. Dr. Martin is the local MS specialist who may be a good choice for opt f/u. 1445: d/w Dr. More Borges- Hosptalist covering self- pay pt's, ok to admit. Medical Decision Making Medical Decision Making: Plan: EKG, Bloodwork, CXR, Urinalysis, Serology, Aspirin 81mg PO, Lioresal 10mg PO, Lovenox 40mg PO, Pepcid 20mg IVP, Lasix 20mg PO, Cozaar 100mg PO ,Hydrodiuril 25mg PO, Medrol 250mg IVP, Toprol XL 100mg PO, Protonix 40mg PO, Crestor 5mg PO MS exacerbation x 3 days w L face and R arm/leg parasthesias/pins/needles, but normal neuro exam. baseline mild diplopia Initial dx 03/04 d/w Dr. Garcia- PMD- ok for inpt eval and tx with Hospitalists CXR negative Disposition Doctor Will See Patient In The: Hospital Counseled Patient/Family Regarding: Studies Performed, Diagnosis - Disposition Disposition: HOSPITALIZED Disposition Time: 14:58 Condition: GOOD - Clinical Impression Clinical Impression: Exacerbation of multiple sclerosis
[2018-04-30 15:10] LABS: BASO % 0.6 % (0.0-2.0); EOS # 0.2 K/uL (0.0-0.7); EOS % 3.2 % (0.0-4.0); HEMOGLOBIN 13.4 g/dL (11.0-16.0); LYMPH # 2.3 K/uL (1.0-4.3); LYMPH % 40.8 % (20.0-40.0); MEAN CORPUSCULAR HEMOGLOBIN 29.9 pg (27.0-31.0); MEAN CORPUSCULAR HGB CONC 32.9 g/dL (33.0-37.0); MEAN PLATELET VOLUME 9.6 fL (7.2-11.7); MONO # 0.3 K/uL (0.0-0.8); MONO % 5.7 % (0.0-10.0); NEUT # 2.9 K/uL (1.8-7.0); NEUT % 49.7 % (50.0-75.0); NRBC % 0.1 % (0.0-2.0); RBC 4.49 Mil/uL (3.80-5.20); RED CELL DISTRIBUTION WIDTH 14.5 % (11.5-14.5)
[2018-04-30 15:12] LABS: WHITE BLOOD COUNT 5.7 K/uL (4.8-10.8)
--- NOTE | 2018-04-30 15:20 | CP.PCM.HP ---
<Lizet Juan - Last Filed: 04/30/18 16:49> History of Present Illness - History of Present Illness History of Present Illness: 48 year old female with history of HTN, TIA, and possible MS who presents to ED complaining of left sided face pain and right leg pain. Patient reports the pain started about 3 days ago suddenly. She describes the pain as pins and needles, right leg pain radiates from her right hip to right foot, and rating it 8/10 in intensity. The pain improves slightly with positional changes and Baclofen. She also reports to feel nauseous intermittently with these symptoms. Patient was last hospitalized in 02/22/2018 and was told she has possible MS. The blurred vision and left extremity sensory deficit remains did not improve. Patient was told to follow up at [facility] but her appointment is in 05/31/18. She denies any slurred speech, gait disturbances, loss of consciousness. She denies abdominal pain, diarrhea, dysuria, incontinence. PMHx: HTN, TIA, and MS SxH: FamH: mom- breast CA, heart disease SocH: denies tobacco, etoh, recreational drug use Allergies: NKDA Meds: Baclofen 10mg, metoprolol succinate 100 daily, lasix 20 daily, valsartan/HCTZ 160/12.5 daily, atorvastatin 10 daily, ASA 325 daily, multivitamin PMD: Dr. Herman Present on Admission - Present on Admission Any Indicators Present on Admission: No Review of Systems - Constitutional Constitutional: As Per HPI. absent: Chills, Fever, Lethargy - EENT Eyes: As Per HPI, Blurred Vision (diplopia). absent: Irritation, Itchy Eyes, Photophobia Ears: As Per HPI. absent: Disequilibrium, Dizziness Nose/Mouth/Throat: As Per HPI. absent: Epistaxis, Nasal Obstruction, Sinus Pain - Breasts Breasts: As Per HPI - Cardiovascular Cardiovascular: As Per HPI. absent: Chest Pain, Edema, Syncope - Respiratory Respiratory: As Per HPI. absent: Cough, Dyspnea, Wheezing - Gastrointestinal Gastrointestinal: As Per HPI, Nausea. absent: Abdominal Pain, Diarrhea, Vomiting - Genitourinary Genitourinary: As Per HPI. absent: Change in Urinary Stream, Hematuria - Musculoskeletal Musculoskeletal: As Per HPI Additional comments: Right lateral thigh and leg - Integumentary Integumentary: As Per HPI - Neurological Neurological: As Per HPI, Numbness, Tingling. absent: Abnormal Gait, Abnormal Speech, Dizziness, Syncope - Psychiatric Psychiatric: As Per HPI. absent: Anxiety, Depression - Endocrine Endocrine: As Per HPI - Hematologic/Lymphatic Hematologic: As Per HPI Past Patient History - Infectious Disease Hx of Infectious Diseases: None - Past Medical History & Family History Past Medical History?: Yes - Past Social History Smoking Status: Never Smoked - CARDIAC Hx Hypertension: Yes - PULMONARY Hx Asthma: Yes - NEUROLOGICAL Hx Transient Ischemic Attacks (TIA): Yes - HEENT Hx HEENT Problems: No Other/Comment: Wears Glasses - RENAL Hx Chronic Kidney Disease: No - ENDOCRINE/METABOLIC Hx Endocrine Disorders: No - HEMATOLOGICAL/ONCOLOGICAL Hx Blood Disorders: No - INTEGUMENTARY Hx Dermatological Problems: No - MUSCULOSKELETAL/RHEUMATOLOGICAL Hx Musculoskeletal Disorders: No Hx Falls: No - GASTROINTESTINAL Hx Gastrointestinal Disorders: No - GENITOURINARY/GYNECOLOGICAL Hx Genitourinary Disorders: No - PSYCHIATRIC Hx Substance Use: No - SURGICAL HISTORY Hx Surgeries: Yes Hx Section: Yes - ANESTHESIA Hx Anesthesia: Yes Meds Allergies/Adverse Reactions: Allergies Allergy/AdvReac Type Severity Reaction Status Date / Time No Known Allergies Allergy Verified 04/30/18 13:45 Physical Exam - Constitutional Appears: Well, No Acute Distress - Head Exam Head Exam: ATRAUMATIC, NORMAL INSPECTION - Eye Exam Eye Exam: EOMI, Normal appearance - ENT Exam ENT Exam: Mucous Membranes Moist - Neck Exam Neck exam: Positive for: Normal Inspection - Respiratory Exam Respiratory Exam: Clear to Auscultation Bilateral, NORMAL BREATHING PATTERN. absent: Rhonchi, Wheezes, Respiratory Distress - Cardiovascular Exam Cardiovascular Exam: REGULAR RHYTHM, +S1, +S2 - GI/Abdominal Exam GI & Abdominal Exam: Normal Bowel Sounds, Soft. absent: Tenderness - Extremities Exam Extremities exam: Positive for: normal inspection, pedal pulses present. Negative for: pedal edema Additional comments: painful to light touch on right lower thigh - Back Exam Back exam: NORMAL INSPECTION - Neurological Exam Neurological exam: Alert, CN II-XII Intact, Oriented x3 - Psychiatric Exam Psychiatric exam: Normal Affect, Normal Mood - Skin Skin Exam: Dry, Normal Color, Warm Results - Vital Signs Recent Vital Signs: Last Vital Signs Temp 98.1 F 04/30/18 13:42 Pulse 67 04/30/18 13:42 Resp 18 01/14/19 13:42 BP 150/90 04/30/18 13:42 Pulse Ox 100 04/30/18 14:59 - Labs Result Diagrams: 04/30/18 15:06 04/30/18 15:06 Labs: Laboratory Results - last 24 hr 04/30/18 15:06 WBC 5.7 D RBC 4.49 Hgb 13.4 Hct 40.9 MCV 91.0 MCH 29.9 MCHC 32.9 L RDW 14.5 Plt Count 228 MPV 9.6 Neut % (Auto) 49.7 L Lymph % (Auto) 40.8 H [place] % (Auto) 5.7 Eos % (Auto) 3.2 Baso % (Auto) 0.6 Neut # (Auto) 2.9 Lymph # (Auto) 2.3 [place] # (Auto) 0.3 Eos # (Auto) 0.2 Baso # (Auto) 0.0 Assessment & Plan - Assessment and Plan (Free Text) Assessment: Possible MS Exacerbation -Blurred vision and left sided numbness unchanged from previous visit -Follow up BILL, EKG, rapid flu -Unremarkable CXR -PT, OT -Brain MRI from 02/22/18 shows multiple small round/elliptical shaped focal areas of increased T2 signal scattered about the subcortical and deep white matter as well as some mild periventricular changes less well seen on this study due to the lack of heavy T2 sequences however exhibit no discernible contrast enhancement. No evidence of unusual meningeal enhancement. -Neurology consulted Dr. Abdoul quarles appreciated -Received solumedrol 250mg IV in the ED, 750mg more to be given today. Will continue 1000mg daily for 5 days total -Follow up [facility] MRI -Lyrica 75mg PO BID Hypertension -HCTZ 12.5mg -Losartan 100mg -Metoprolol 100mg Hyperlipidemia -Rosuvastatin 5mg Prophylactic measures -Lovenox -Potonix Case discussed with attending Dr. Ndiaye <Ranjana Ndiaye - Last Filed: 05/05/18 20:52> Results - Vital Signs Recent Vital Signs: Last Vital Signs Temp 98.0 F 05/03/18 07:33 Pulse 71 05/03/18 07:33 Resp 20 05/03/18 07:33 BP 145/87 05/03/18 10:13 Pulse Ox 97 05/03/18 07:33 - Labs Result Diagrams: 05/03/18 06:50 05/03/18 06:50 Attending/Attestation - Attestation I have personally seen and examined this patient.: Yes I have fully participated in the care of the patient.: Yes I have reviewed all pertinent clinical information: Yes Notes (Text): SEEN AND EXAMINED IN THE ER.HISTORY TAKEN FROM THE PATIENT PATIENT HAS MS EXACERBATION TREAT WITH SOLUMEDROL PER NEUROLOGIST ASSESSMENT AND THE PLAN DISCUSSED WITH THE RESIDENT PATIENT HAS AN APPOINTMENT WITH MS CLINIC TO FOLLOW AFTER DISCHARGE
[2018-04-30 15:25] LABS: ALB/GLOB RATIO 1.4 (1.0-2.1); ALBUMIN 4.8 g/dL (3.5-5.0); ALT/SGPT 24 U/L (9-52); AST/SGOT 28 U/L (14-36); BLOOD UREA NITROGEN 19 mg/dL (7-17); CALCIUM 9.6 mg/dl (8.6-10.4); GFR NON-AFRICAN AMERICAN > 60
[2018-04-30 15:26] LABS: SQUAMOUS EPITHIAL 22 /hpf (0-5); URINE BACTERIA RARE (<OCC); URINE BILIRUBIN NEGATIVE (NEGATIVE); URINE BLOOD NEGATIVE (NEGATIVE); URINE CLARITY Hazy (Clear); URINE COLOR Yellow (YELLOW); URINE GLUCOSE (UA) NORMAL (Normal); URINE HYALINE CAST 0-2 /lpf (0-2); URINE LEUKOCYTE ESTERASE TRACE Leu/uL (Negative); URINE PROTEIN 1+ mg/dL (NEGATIVE)
[2018-04-30 15:45] LABS: BARBITURATES, UR NEGATIVE (NEGATIVE); BENZODIAZEPINES, UR NEGATIVE (NEGATIVE); OPIATES, UR NEGATIVE (NEGATIVE); PHENCYCLIDINE, UR NEGATIVE (NEGATIVE)
[2018-04-30] MEDS ORDERED: SODIUM CHLORIDE 0.9% IVPB ONE (17:30)
[2018-04-30] MEDS ORDERED: METHYLPREDNISOLONE IVPB ONE (17:30)
[2018-04-30 17:47] LABS: CK-MB 0.29 ng/mL (0.0-3.38)
[2018-04-30 23:54] LABS: CK-MB 0.24 ng/mL (0.0-3.38)
[2018-05-01 07:36] LABS: BASO % 0.2 % (0.0-2.0); EOS % 0.1 % (0.0-4.0); HEMOGLOBIN 12.9 g/dL (11.0-16.0); LYMPH # 1.5 K/uL (1.0-4.3); LYMPH % 14.8 % (20.0-40.0); MEAN CELL VOLUME 92.5 fL (81.0-99.0); MEAN CORPUSCULAR HEMOGLOBIN 31.3 pg (27.0-31.0); MEAN CORPUSCULAR HGB CONC 33.8 g/dL (33.0-37.0); MEAN PLATELET VOLUME 10.5 fL (7.2-11.7); MONO # 0.1 K/uL (0.0-0.8); MONO % 0.7 % (0.0-10.0); NEUT # 8.4 K/uL (1.8-7.0); NEUT % 84.2 % (50.0-75.0); RBC 4.12 Mil/uL (3.80-5.20); RED CELL DISTRIBUTION WIDTH 14.3 % (11.5-14.5)
[2018-05-01 07:51] LABS: ALB/GLOB RATIO 1.5 (1.0-2.1); ALBUMIN 4.4 g/dL (3.5-5.0); ALT/SGPT 22 U/L (9-52); AST/SGOT 26 U/L (14-36); BLOOD UREA NITROGEN 23 mg/dL (7-17); CALCIUM 9.8 mg/dl (8.6-10.4); GFR NON-AFRICAN AMERICAN 59
[2018-05-01] MEDS: Metoprolol Succinate 100 mg XL Tab PO SCH (09:52)
[2018-05-01] MEDS: Enoxaparin 40 mg Syringe SC SCH (09:53)
[2018-05-01] MEDS: Pantoprazole 40 mg EC Tab PO SCH (09:54)
[2018-05-01] MEDS ORDERED: Enoxaparin 30 mg Syringe SC SCH (10:00)
[2018-05-01] MEDS ORDERED: MethylPREDNISolone 1 gm Vial IV SCH (10:00)
[2018-05-01] MEDS: methylPREDNISolone 1 GM in Sodium Chloride 0.9% 250 ML IV SCH (11:00)
--- NOTE | 2018-05-01 14:11 | MRI ---
Date of service: 04/30/2018 PROCEDURE: MRI BRAIN WITH AND WITHOUT CONTRAST HISTORY: per neuro MS exacerbation COMPARISON: Brain MRI with and without contrast 02/22/2018. TECHNIQUE: Multiplanar, multisequence MR images of the brain were obtained with and without intravenous contrast enhancement (Omniscan 15 cc). FINDINGS: HEMORRHAGE: None DWI: No evidence of an acute or early subacute infarction. BRAIN PARENCHYMA: Trace new long TR hyperintensities identified at the anterior margins of the corpus callosum best appreciated in the sagittal FLAIR series, not previously identified. Otherwise, limited subcortical and deep white matter punctate long TR hyperintensities are reiterated scattered at the bilateral frontal lobes white-matter with minimal involvement of the deep left parietal white matter greater than right side. No abnormal intracranial enhancement is identified to indicate active plaque enhancement. Corticomedullary differentiation remains good with no mass effect or suspicious extra-axial collection appreciated the posterior fossa contents and brainstem are normal and the sulci and cisterns remain unremarkable. ENHANCEMENT: No abnormal intracranial enhancement. VENTRICLES: Unremarkable. No hydrocephalus. CRANIUM: Unremarkable. ORBITS: Grossly unremarkable. PARANASAL SINUSES/MASTOIDS: Clear VASCULAR SYSTEM: Skull base flow voids intact. OTHER FINDINGS: None . IMPRESSION: Trace new abnormal signal anterior corpus callosum without interval new enhancement appreciable throughout the brain. Otherwise, vast majority of signal intensity is stable at the bilateral frontal and left greater than right parietal lobes subcortical and deep white matter.
--- NOTE | 2018-05-01 15:05 | CP.PCM.PN ---
<Baldev Cotter - Last Filed: 05/01/18 16:13> Subjective - Date & Time of Evaluation Date of Evaluation: 05/01/18 Time of Evaluation: 15:13 - Subjective Subjective: PGY-[address] Ndiaye Patient seen and examined at bedside. No acute events overnight. She does endorse to me symptoms of numbness and tingling on her right upper and lower extremity, as well as tingling and pain across her head. I explained to patient about the course of MS and that while not curable in 2019, treated correctly its progression can be delayed to minimize symptoms and maximize quality of life. Patient did also endorse to me blurry vision, which she states is like seeing double, and worsened by wearing her glasses. Objective - Vital Signs/Intake and Output Vital Signs (last 24 hours): Temp Pulse Resp BP Pulse Ox 97.5 F L 83 20 134/78 98 05/01/18 07:00 05/01/18 07:00 05/01/18 07:00 05/01/18 09:52 05/01/18 07:00 - Medications Medications: Current Medications Aspirin (Aspirin Chewable) 81 mg PO DAILY [facility] Last Admin: 05/01/18 09:52 Dose: 81 mg Enoxaparin Sodium (Lovenox) 40 mg SC DAILY [facility] Last Admin: 05/01/18 09:53 Dose: 40 mg Furosemide (Lasix) 20 mg PO DAILY [facility] Last Admin: 05/01/18 09:52 Dose: 20 mg Hydrochlorothiazide (Microzide) 12.5 mg PO DAILY [facility] Last Admin: 05/01/18 09:52 Dose: 12.5 mg Methylprednisolone 1 gm/ (Sodium Chloride) 250 mls @ 250 mls/hr IV Q24H [facility] Stop: 05/03/18 10:59 Last Admin: 05/01/18 11:00 Dose: 250 mls/hr Influenza Virus Vaccine (Flucelvax Quad 4580-3879 Syr) 60 mcg IM .ONCE ONE Stop: 05/03/18 10:01 Losartan Potassium (Cozaar) 100 mg PO DAILY [facility] Last Admin: 05/01/18 09:54 Dose: 100 mg Metoprolol Succinate (Toprol Xl) 100 mg PO DAILY [facility] Last Admin: 05/01/18 09:52 Dose: 100 mg Ondansetron HCl (Zofran Inj) 4 mg IVP DAILY@ONCE PRN PRN Reason: Nausea/Vomiting Pantoprazole Sodium (Protonix Ec Tab) 40 mg PO DAILY [facility] Last Admin: 05/01/18 09:54 Dose: 40 mg Pneumococcal Polyvalent Vaccine (Pneumovax 23 Vaccine) 0.5 ml IM .ONCE ONE Stop: 05/03/18 10:01 Pregabalin (Lyrica) 75 mg PO BID [facility] Last Admin: 05/01/18 09:53 Dose: 75 mg Rosuvastatin Calcium (Crestor) 5 mg PO DAILY [facility] Last Admin: 05/01/18 09:55 Dose: 5 mg - Labs Labs: 05/01/18 07:26 05/01/18 07:22 - Constitutional Appears: Non-toxic, No Acute Distress - Head Exam Head Exam: ATRAUMATIC, NORMOCEPHALIC - Eye Exam Eye Exam: EOMI - ENT Exam ENT Exam: Mucous Membranes Moist - Cardiovascular Exam Cardiovascular Exam: REGULAR RHYTHM, +S1, +S2 - GI/Abdominal Exam GI & Abdominal Exam: Soft, Normal Bowel Sounds. absent: Tenderness - Extremities Exam Extremities Exam: absent: Pedal Edema, Tenderness - Neurological Exam Neurological Exam: Alert, Awake, CN II-XII Intact, Oriented x3 Neuro motor strength exam: Left Upper Extremity: 5, Right Upper Extremity: 4 (4+), Left Lower Extremity: 5, Right Lower Extremity: 4 (4+) Additional comments: Decreased sensation right upper and right lower extremity. Normal babinsky. Hypersensitivity to touch on back of head. - Psychiatric Exam Psychiatric exam: Normal Affect, Normal Mood - Skin Skin Exam: Dry, Intact Assessment and Plan - Assessment and Plan (Free Text) Assessment: MS Exacerbation vs stable MS -Blurred vision and left sided numbness unchanged from previous visit -Rapid flu negative -EKG - Sinus milka w/ early repolarization otherwise normal, BILL WNL -CXR 05/01 - No active disease -PT, OT Imaging -Brain MRI from 02/22/18 shows multiple small round/elliptical shaped focal areas of increased T2 signal scattered about the subcortical and deep white matter as well as some mild periventricular changes less well seen on this study due to the lack of heavy T2 sequences however exhibit no discernible contrast enhancement. No evidence of unusual meningeal enhancement. -MRI 05/01 - Trace new abnormal signal anterior corpus callosum without interval new enhancement appreciable throughout the brain. Otherwise, vast majority of signal intensity is stable at the bilateral frontal and left greater than right parietal lobes subcortical and deep white matter. -Neurology consulted Dr. Abdoul quarles appreciated -Received solumedrol 250mg IV in the ED, 750mg more to be given today. -Continue Solumedrol 1000mg IV daily for 5 days total --Monitor blood glucose with high dose IV steroids -Lyrica 75mg PO BID -MRI brain (see above) Hypertension -HCTZ 12.5mg -Losartan 100mg -Metoprolol 100mg Hyperlipidemia -Rosuvastatin 5mg Prophylactic measures -Lovenox -Potonix Case discussed with attending Dr. Zelda Cotter, PGY-1 <Ranjana Ndiaye - Last Filed: 05/05/18 20:35> Objective - Vital Signs/Intake and Output Vital Signs (last 24 hours): Temp Pulse Resp BP Pulse Ox 98.0 F 71 20 145/87 97 05/03/18 07:33 05/03/18 07:33 05/03/18 07:33 05/03/18 10:13 05/03/18 07:33 - Labs Labs: 05/03/18 06:50 05/03/18 06:50 Attending/Attestation - Attestation I have personally seen and examined this patient.: Yes I have fully participated in the care of the patient.: Yes I have reviewed all pertinent clinical information, including history, physical exam and plan: Yes Notes (Text): SEEN AND EXAMINED,MS EXACERBATION STARTED ON STEROID PLAN DISCUSSED WITH THE PATIENT ASSESSMENT AND THE PLAN DISCUSSED WITH THE RESIDENT AND I AGREE WITH THE DOCUMENTAION PATIENT HAS AN APPOINTMENT WITH MS CLINIC TO FOLLOW AFTER DISCHARGE
--- NOTE | 2018-05-02 05:51 | CARD ---
APPROVED REPORT Date of service: 04/30/2018 EKG Measurement Heart [id number] <Conclusion> Sinus bradycardia Early repolarization Otherwise normal ECG
--- NOTE | 2018-05-02 07:10 | CP.PCM.PN ---
<Veda Gonzalez - Last Filed: 05/02/18 15:53> Subjective - Date & Time of Evaluation Date of Evaluation: 05/02/18 Time of Evaluation: 07:03 - Subjective Subjective: PGY-1 Veda Gonzalez D.O. Medicine progress note for Dr. Ndiaye's service: Patient was seen and examined this morning. She continues to have numbness and tingling and states that it moves to different body parts. She also endorses some dysphagia that is intermittent. She is tolerating PO diet. She is ambulating. Objective - Vital Signs/Intake and Output Vital Signs (last 24 hours): Temp Pulse Resp BP Pulse Ox 97.5 F L 65 20 104/67 94 L 05/02/18 00:00 05/02/18 00:00 05/02/18 00:00 05/02/18 00:00 05/02/18 00:00 Intake and Output: 05/02/18 05/02/18 06:59 18:59 Intake Total 350 Balance 350 - Medications Medications: Current Medications Aspirin (Aspirin Chewable) 81 mg PO DAILY [facility] Last Admin: 05/01/18 09:52 Dose: 81 mg Enoxaparin Sodium (Lovenox) 40 mg SC DAILY [facility] Last Admin: 05/01/18 09:53 Dose: 40 mg Furosemide (Lasix) 20 mg PO DAILY [facility] Last Admin: 05/01/18 09:52 Dose: 20 mg Hydrochlorothiazide (Microzide) 12.5 mg PO DAILY [facility] Last Admin: 05/01/18 09:52 Dose: 12.5 mg Methylprednisolone 1 gm/ (Sodium Chloride) 250 mls @ 250 mls/hr IV Q24H [facility] Stop: 05/03/18 10:59 Last Admin: 05/01/18 11:00 Dose: 250 mls/hr Influenza Virus Vaccine (Flucelvax Quad [id number] Syr) 60 mcg IM .ONCE ONE Stop: 05/03/18 10:01 Losartan Potassium (Cozaar) 100 mg PO DAILY [facility] Last Admin: 05/01/18 09:54 Dose: 100 mg Metoprolol Succinate (Toprol Xl) 100 mg PO DAILY [facility] Last Admin: 05/01/18 09:52 Dose: 100 mg Ondansetron HCl (Zofran Inj) 4 mg IVP DAILY@ONCE PRN PRN Reason: Nausea/Vomiting Pantoprazole Sodium (Protonix Ec Tab) 40 mg PO DAILY [facility] Last Admin: 05/01/18 09:54 Dose: 40 mg Pneumococcal Polyvalent Vaccine (Pneumovax 23 Vaccine) 0.5 ml IM .ONCE ONE Stop: 05/03/18 10:01 Pregabalin (Lyrica) 75 mg PO BID [facility] Last Admin: 05/01/18 17:25 Dose: 75 mg Rosuvastatin Calcium (Crestor) 5 mg PO DAILY [facility] Last Admin: 05/01/18 09:55 Dose: 5 mg - Labs Labs: 05/01/18 07:26 05/01/18 07:22 - Constitutional Appears: Non-toxic, No Acute Distress - Head Exam Head Exam: ATRAUMATIC, NORMAL INSPECTION - Eye Exam Eye Exam: EOMI, Normal appearance - ENT Exam ENT Exam: Mucous Membranes Moist - Neck Exam Neck Exam: Normal Inspection - Respiratory Exam Respiratory Exam: Clear to Ausculation Bilateral, NORMAL BREATHING PATTERN. absent: Respiratory Distress - Cardiovascular Exam Cardiovascular Exam: REGULAR RHYTHM, +S1, +S2 - GI/Abdominal Exam GI & Abdominal Exam: Soft. absent: Distended, Tenderness - Extremities Exam Extremities Exam: Normal Inspection - Neurological Exam Neurological Exam: Alert, Awake, CN II-XII Intact, Oriented x3 Neuro motor strength exam: Left Upper Extremity: 4, Right Upper Extremity: 4, Left Lower Extremity: 4, Right Lower Extremity: 4 Additional comments: paresthesias of limbs and head- patient inconsistent with reporting location - Psychiatric Exam Psychiatric exam: Normal Affect, Normal Mood - Skin Skin Exam: Dry, Normal Color, Warm Assessment and Plan - Assessment and Plan (Free Text) Assessment: Patient is a 48 yo female who presented with an MS exacerbation. She was recently diagnosed via MRI in 02/2018. She is being treated with a short course of IV steroids with improvement of symptoms. She will follow-up in the MS clinic upon discharge. Plan: Multiple sclerosis exacerbation - Blurred vision and left sided numbness unchanged from previous visit - New paresthesias of limbs and head - Rapid flu negative - EKG: Sinus bradycardia w/ early repolarization otherwise normal, BILL WNL - CXR: No active disease - MRI brain (02/22/18): multiple small round/elliptical shaped focal areas of increased T2 signal scattered about the subcortical and deep white matter as well as some mild periventricular changes less well seen on this study due to the lack of heavy T2 sequences however exhibit no discernible contrast enhancement. No evidence of unusual meningeal enhancement. - MRI brain (05/01/18): Trace new abnormal signal anterior corpus callosum without interval new enhancement appreciable throughout the brain. Otherwise, vast majority of signal intensity is stable at the bilateral frontal and left greater than right parietal lobes subcortical and deep white matter. - Solumedrol 1000 mg IV daily for 5 days total (04/30-05/04) - Lyrica 75mg PO BID - Neurology consulted (Abdoul)- okay to be discharged after 4th dose of Solumedrol tomorrow 05/03, follow-up at [facility] on 05/31/18 - PT, OT Hypertension - Vitals Q6H - HCTZ 12.5 mg PO daily - Losartan 100 mg PO daily - Metoprolol 100 mg Po daily - Lasix 20 mg PO daily Hyperlipidemia - Rosuvastatin 5 mg PO daily Ppx: VTE: Lovenox 40 mg SC daily GI: Protonix 40 mg PO daily Code status: full code Case discussed with attending, Dr. Ndiaye. <Ranjana Ndiaye - Last Filed: 05/05/18 20:10> Objective - Vital Signs/Intake and Output Vital Signs (last 24 hours): Temp Pulse Resp BP Pulse Ox 98.0 F 71 20 145/87 97 05/03/18 07:33 05/03/18 07:33 05/03/18 07:33 05/03/18 10:13 05/03/18 07:33 - Labs Labs: 05/03/18 06:50 05/03/18 06:50 Attending/Attestation - Attestation I have personally seen and examined this patient.: Yes I have fully participated in the care of the patient.: Yes I have reviewed all pertinent clinical information, including history, physical exam and plan: Yes Notes (Text): MS exacerbation,SEEN AND EXAMINED CONTINUE SOLUMEDROL PER NEUROLOGIST OUT PT MS CLINIC AFTER DISCHARGE I AGREE WITH THE RESIDENT'S DOCUMENTATION
[2018-05-02 07:20] LABS: BASO % 0.1 % (0.0-2.0); HEMOGLOBIN 12.7 g/dL (11.0-16.0); LYMPH # 0.7 K/uL (1.0-4.3); MEAN CELL VOLUME 92.2 fL (81.0-99.0); MEAN CORPUSCULAR HEMOGLOBIN 30.7 pg (27.0-31.0); MEAN CORPUSCULAR HGB CONC 33.3 g/dL (33.0-37.0); MEAN PLATELET VOLUME 10.8 fL (7.2-11.7); MONO # 0.3 K/uL (0.0-0.8); MONO % 1.8 % (0.0-10.0); NEUT # 13.4 K/uL (1.8-7.0); NEUT % 93.1 % (50.0-75.0); NRBC % 0.1 % (0.0-2.0); PLATELET COUNT 213 K/uL (130-400); RBC 4.15 Mil/uL (3.80-5.20); RED CELL DISTRIBUTION WIDTH 14.5 % (11.5-14.5); WHITE BLOOD COUNT 14.4 K/uL (4.8-10.8)
[2018-05-02 07:47] LABS: ALB/GLOB RATIO 1.5 (1.0-2.1); ALBUMIN 4.6 g/dL (3.5-5.0); ALT/SGPT 22 U/L (9-52); AST/SGOT 26 U/L (14-36); BLOOD UREA NITROGEN 31 mg/dL (7-17); CALCIUM 9.8 mg/dl (8.6-10.4); GFR NON-AFRICAN AMERICAN 53
[2018-05-02 09:16] LABS: LYMPHOCYTE 8 % (20-40); MONOCYTE 3 % (0-10); NEUTROPHIL 89 % (50-75); PLATELET ESTIMATE NORMAL (NORMAL); TOTAL CELLS COUNTED 100
[2018-05-02] MEDS ORDERED: Pneumococcal 23-Valent Vaccine IM ONE (10:00)
[2018-05-02] MEDS: Metoprolol Succinate 100 mg XL Tab PO SCH (10:35)
[2018-05-02] MEDS: Pantoprazole 40 mg EC Tab PO SCH (10:35)
[2018-05-02] MEDS: Enoxaparin 40 mg Syringe SC SCH (10:37)
[2018-05-02] MEDS: methylPREDNISolone 1 GM in Sodium Chloride 0.9% 250 ML IV SCH (10:41)
--- NOTE | 2018-05-02 12:15 | CP.PCM.CON ---
History of Present Illness - History of Present Illness History of Present Illness: 48 yr old woman who is here for MS exacerbation for new symptoms. She has an appointment with [facility] and is now awaiting this meeting. She has new tingling and numbnes in her head, right side more than left. THere was no aphasia, no weakness, no dysarthria, no other complaints. Miss Hogan was [place] [facility] [facility] and she is still awaiting her appointment. ON last visit, she received a 5 day dose of solumedrol and tolerated it well. ROS: as above. PMH/PSH: htn FH/SH: currently not working. Has several children. NO tobacco, no etoh. All: nkda. ON exam: AAOX3. PERRL. EOMI. CN 2-12normal. no RAPHAEL. strenght: slight weakness in her right arm: 4/5, with some dysmetria in right hand. left arm and leg 5/5 Gait normal, slightly wide based. Past Patient History - Infectious Disease Hx of Infectious Diseases: None - Past Medical History & Family History Past Medical History?: Yes - Past Social History Smoking Status: Never Smoked - CARDIAC Hx Cardiac Disorders: Yes Hx Hypertension: Yes - PULMONARY Hx Respiratory Disorders: Yes Hx Asthma: Yes - NEUROLOGICAL Hx Neurological Disorder: Yes Hx Multiple Sclerosis: Yes Hx Transient Ischemic Attacks (TIA): Yes - HEENT Hx HEENT Problems: No Other/Comment: Wears Glasses - RENAL Hx Chronic Kidney Disease: No - ENDOCRINE/METABOLIC Hx Endocrine Disorders: No - HEMATOLOGICAL/ONCOLOGICAL Hx Blood Disorders: No - INTEGUMENTARY Hx Dermatological Problems: No - MUSCULOSKELETAL/RHEUMATOLOGICAL Hx Musculoskeletal Disorders: No Hx Falls: No - GASTROINTESTINAL Hx Gastrointestinal Disorders: No - GENITOURINARY/GYNECOLOGICAL Hx Genitourinary Disorders: No - PSYCHIATRIC Hx Psychophysiologic Disorder: No Hx Substance Use: No - SURGICAL HISTORY Hx Surgeries: Yes Hx Section: Yes - ANESTHESIA Hx Anesthesia: Yes Hx Anesthesia Reactions: No Hx Malignant Hyperthermia: No Has any member of the family had a problem w/ anesthesia?: No Meds Home Medications: Home Medication List Medication Instructions Recorded Confirmed Type Aspirin [Ecotrin] 81 mg PO DAILY #30 tabec 05/03/18 Rx Atorvastatin Calcium 10 mg PO DAILY #30 tablet 05/03/18 Rx Furosemide [Lasix] 20 mg PO DAILY #30 tab 05/03/18 Rx Metoprolol Succinate XL [Toprol XL] 100 mg PO DAILY #30 tab 05/03/18 Rx Pregabalin [Lyrica] 75 mg PO BID #60 cap 05/03/18 Rx Valsartan/Hydrochlorothiazide 1 each PO DAILY #30 tablet 05/03/18 Rx [Valsartan-Hctz 160-12.5 mg Tab] Allergies/Adverse Reactions: Allergies Allergy/AdvReac Type Severity Reaction Status Date / Time No Known Allergies Allergy Verified 04/30/18 13:45 - Medications Medications: Current Medications Aspirin (Aspirin Chewable) 81 mg PO DAILY [facility] Last Admin: 05/02/18 10:35 Dose: 81 mg Enoxaparin Sodium (Lovenox) 40 mg SC DAILY [facility] Last Admin: 05/02/18 10:37 Dose: 40 mg Furosemide (Lasix) 20 mg PO DAILY [facility] Last Admin: 05/02/18 10:36 Dose: 20 mg Hydrochlorothiazide (Microzide) 12.5 mg PO DAILY [facility] Last Admin: 05/02/18 10:37 Dose: 12.5 mg Methylprednisolone 1 gm/ (Sodium Chloride) 250 mls @ 250 mls/hr IV Q24H [facility] Stop: 05/04/18 10:59 Last Admin: 05/02/18 10:41 Dose: 250 mls/hr Influenza Virus Vaccine (Flucelvax Quad 1116-2036 Syr) 60 mcg IM .ONCE ONE Stop: 05/03/18 10:01 Losartan Potassium (Cozaar) 100 mg PO DAILY [facility] Last Admin: 05/02/18 10:35 Dose: 100 mg Metoprolol Succinate (Toprol Xl) 100 mg PO DAILY [facility] Last Admin: 05/02/18 10:35 Dose: 100 mg Pantoprazole Sodium (Protonix Ec Tab) 40 mg PO DAILY [facility] Last Admin: 05/02/18 10:35 Dose: 40 mg Pneumococcal Polyvalent Vaccine (Pneumovax 23 Vaccine) 0.5 ml IM .ONCE ONE Stop: 05/03/18 10:01 Pregabalin (Lyrica) 75 mg PO BID [facility] Last Admin: 05/02/18 10:35 Dose: 75 mg Rosuvastatin Calcium (Crestor) 5 mg PO DAILY [facility] Last Admin: 05/02/18 11:41 Dose: 5 mg Results - Vital Signs Recent Vital Signs: Last Vital Signs Temp 97.5 F L 05/02/18 07:00 Pulse 63 05/02/18 07:00 Resp 96 H 05/02/18 07:00 BP 131/76 05/02/18 10:36 Pulse Ox 96 05/02/18 07:00 - Labs Result Diagrams: 05/03/18 06:50 05/03/18 06:50 Labs: Laboratory Results - last 24 hr 05/02/18 05/02/18 06:56 06:56 WBC 14.4 H RBC 4.15 Hgb 12.7 Hct 38.2 MCV 92.2 MCH 30.7 MCHC 33.3 RDW 14.5 Plt Count 213 MPV 10.8 Neut % (Auto) 93.1 H Lymph % (Auto) 5.0 L [place] % (Auto) 1.8 Eos % (Auto) 0.0 Baso % (Auto) 0.1 Neut # (Auto) 13.4 H Lymph # (Auto) 0.7 L [place] # (Auto) 0.3 Eos # (Auto) 0.0 Baso # (Auto) 0.0 Neutrophils % (Manual) 89 H Lymphocytes % (Manual) 8 L Monocytes % (Manual) 3 Platelet Estimate Normal Sodium 139 Potassium 3.9 Chloride 104 Carbon Dioxide 26 Anion Gap 12 BUN 31 H Creatinine 1.1 Est GFR ( Amer) > 60 Est GFR (Non-Af Amer) 53 Random Glucose 160 H Calcium 9.8 Total Bilirubin 0.4 AST 26 ALT 22 Alkaline Phosphatase 69 Total Protein 7.6 Albumin 4.6 Globulin 3.0 Albumin/Globulin Ratio 1.5 Assessment & Plan - Assessment and Plan (Free Text) Assessment: MRI BRain: shows increased enhancement linear hyperdensities in left basal ganglia not seen on prior imaging. Plan: MRI Brain: shows linear hyperdensities in corpus callosum. These were not present on prior studies. A/p: 48 yr old with relapsing remitting MS, now awaiting treatment for MS from [facility]. We will admit her for 3 days of solumedrol and MS exacerbation. Plan: 1. 1 gm solumedrol IV now and for 3 days 2. PPI Thank you Dr. Jennifer Arellano MD DPN [facility]
[2018-05-02 16:27] VITALS: RESP 20
--- NOTE | 2018-05-03 07:14 | CP.PCM.DIS ---
<Veda Gonzalez - Last Filed: 05/03/18 16:33> Provider - Provider Date of Admission: 04/30/18 14:59 Attending physician: Ranjana Ndiaye MD Primary care physician: Dr. Garcia Consults: 04/30/18 15:42 Neurology Consult Routine Comment: Consulting Provider: Jennifer Schreiber Consulting Physician: Jennifer Schreiber Reason for Consult: MS exacerbation Time Spent in preparation of Discharge (in minutes): 45 Diagnosis - Discharge Diagnosis (1) Exacerbation of multiple sclerosis Status: Acute Priority: High (2) HTN (hypertension) Status: Chronic Priority: Medium (3) HLD (hyperlipidemia) Status: Chronic Priority: Medium Hospital Course - Lab Results Lab Results: Most Recent Lab Values WBC 14.4 K/uL (4.8-10.8) H 05/02/18 06:56 RBC 4.15 Mil/uL (3.80-5.20) 05/02/18 06:56 Hgb 12.7 g/dL (11.0-16.0) 05/02/18 06:56 Hct 38.2 % (34.0-47.0) 05/02/18 06:56 MCV 92.2 fL (81.0-99.0) 05/02/18 06:56 MCH 30.7 pg (27.0-31.0) 05/02/18 06:56 MCHC 33.3 g/dL (33.0-37.0) 05/02/18 06:56 RDW 14.5 % (11.5-14.5) 05/02/18 06:56 Plt Count 213 K/uL (130-400) 05/02/18 06:56 MPV 10.8 fL (7.2-11.7) 05/02/18 06:56 Neut % (Auto) 93.1 % (50.0-75.0) H 05/02/18 06:56 Lymph % (Auto) 5.0 % (20.0-40.0) L 05/02/18 06:56 [place] % (Auto) 1.8 % (0.0-10.0) 05/02/18 06:56 Eos % (Auto) 0.0 % (0.0-4.0) 05/02/18 06:56 Baso % (Auto) 0.1 % (0.0-2.0) 05/02/18 06:56 Neut # (Auto) 13.4 K/uL (1.8-7.0) H 05/02/18 06:56 Lymph # (Auto) 0.7 K/uL (1.0-4.3) L 05/02/18 06:56 [place] # (Auto) 0.3 K/uL (0.0-0.8) 05/02/18 06:56 Eos # (Auto) 0.0 K/uL (0.0-0.7) 05/02/18 06:56 Baso # (Auto) 0.0 K/uL (0.0-0.2) 05/02/18 06:56 Neutrophils % (Manual) 89 % (50-75) H 05/02/18 06:56 Lymphocytes % (Manual) 8 % (20-40) L 05/02/18 06:56 Monocytes % (Manual) 3 % (0-10) 05/02/18 06:56 Platelet Estimate Normal (NORMAL) 05/02/18 06:56 Sodium 139 mmol/L (132-148) 05/02/18 06:56 Potassium 3.9 mmol/L (3.6-5.2) 05/02/18 06:56 Chloride 104 mmol/L (98-107) 05/02/18 06:56 Carbon Dioxide 26 mmol/L (22-30) 05/02/18 06:56 Anion Gap 12 (10-20) 05/02/18 06:56 BUN 31 mg/dL (7-17) H 05/02/18 06:56 Creatinine 1.1 mg/dL (0.7-1.2) 05/02/18 06:56 Est GFR ( Amer) > 60 05/02/18 06:56 Est GFR (Non-Af Amer) 53 05/02/18 06:56 POC Glucose (mg/dL) 126 mg/dL (65-110) H 04/30/18 18:25 Random Glucose 160 mg/dL (65-105) H 05/02/18 06:56 Calcium 9.8 mg/dl (8.6-10.4) 05/02/18 06:56 Phosphorus 2.6 mg/dL (2.5-4.5) 05/01/18 07:22 Magnesium 2.1 mg/dL (1.6-2.3) 05/01/18 07:22 Total Bilirubin 0.4 mg/dL (0.2-1.3) 05/02/18 06:56 AST 26 U/L (14-36) 05/02/18 06:56 ALT 22 U/L (9-52) 05/02/18 06:56 Alkaline Phosphatase 69 U/L (38-126) 05/02/18 06:56 Total Creatine Kinase 103 U/L (30-135) 04/30/18 23:24 CK-MB (Mass) 0.24 ng/mL (0.0-3.38) 04/30/18 23:24 Troponin I < 0.0120 ng/mL (0.00-0.120) 04/30/18 23:24 Total Protein 7.6 g/dL (6.3-8.3) 05/02/18 06:56 Albumin 4.6 g/dL (3.5-5.0) 05/02/18 06:56 Globulin 3.0 gm/dL (2.2-3.9) 05/02/18 06:56 Albumin/Globulin Ratio 1.5 (1.0-2.1) 05/02/18 06:56 Urine Color Yellow (YELLOW) 04/30/18 15:06 Urine Clarity Hazy (Clear) 04/30/18 15:06 Urine pH 8.0 (5.0-8.0) 04/30/18 15:06 Ur Specific [place] 1.021 (1.003-1.030) 04/30/18 15:06 Urine Protein 1+ mg/dL (NEGATIVE) H 04/30/18 15:06 Urine Glucose (UA) Normal mg/dL (Normal) 04/30/18 15:06 Urine Ketones Negative mg/dL (NEGATIVE) 04/30/18 15:06 Urine Blood Negative (NEGATIVE) 04/30/18 15:06 Urine Nitrate Negative (NEGATIVE) 04/30/18 15:06 Urine Bilirubin Negative (NEGATIVE) 04/30/18 15:06 Urine Urobilinogen 4.0 mg/dL (0.2-1.0) H 04/30/18 15:06 Ur Leukocyte Esterase Trace Fitz/uL (Negative) 04/30/18 15:06 Urine WBC (Auto) 4 /hpf (0-5) 04/30/18 15:06 Urine RBC (Auto) 3 /hpf (0-3) 04/30/18 15:06 Ur Squamous Epith Cells 22 /hpf (0-5) H 04/30/18 15:06 Urine Bacteria Rare (<OCC) 04/30/18 15:06 Hyaline Casts 0-2 /lpf (0-2) 04/30/18 15:06 Urine HCG, Qual Negative (NEGATIVE) 04/30/18 15:26 Urine Opiates Screen Negative (NEGATIVE) 04/30/18 15:06 Urine Methadone Screen Negative (NEGATIVE) 04/30/18 15:06 Ur Barbiturates Screen Negative (NEGATIVE) 04/30/18 15:06 Ur Phencyclidine Scrn Negative (NEGATIVE) 04/30/18 15:06 Ur Amphetamines Screen Negative (NEGATIVE) 04/30/18 15:06 U Benzodiazepines Scrn Negative (NEGATIVE) 04/30/18 15:06 U Oth Cocaine Metabols Negative (NEGATIVE) 04/30/18 15:06 U Cannabinoids Screen Negative (NEGATIVE) 04/30/18 15:06 Influenza Typ A,B (EIA) Negative for flu a/b (NEGATIVE) 04/30/18 15:56 - Hospital Course Hospital Course: Patient is a 48 year old female with a history of HTN, TIA, and newly diagnosed MS who presented to ED complaining of left-sided face pain and right leg pain. Patient reports the pain started about 3 days ago suddenly. She describes the pain as pins and needles, right leg pain radiates from her right hip to right foot, and rating it 8/10 in intensity. The pain improves slightly with positional changes and Baclofen. She also reports to feel nauseous interm ittently with these symptoms. Patient was last hospitalized in 02/22/2018 and was told she has possible MS. The blurred vision and left extremity sensory deficits did not improve. Patient was told to follow up at [facility] center but her appointment is in 05/31/18. She denies any slurred speech, gait disturbances, loss of consciousness. She denies abdominal pain, diarrhea, dysuria, incontinence. MRI of the brain was done and compared to the MRI from Feb 2018. It showed trace new abnormal signal anterior corpus callosum without interval new enhancement appreciable throughout the brain. Otherwise, vast majority of signal intensity is stable at the bilateral frontal and left greater than right parietal lobes subcortical and deep white matter. Neurology was consulted and the patient was started on high dose IV steroids for a 4-day course. Upon discharge, patient still reported some paresthesias but had overall improved. She was ambulating with a cane. She will receive outpatient PT. Her vitals were stable. Her glucose was not significantly elevated. Discharge Exam - Head Exam Head Exam: ATRAUMATIC, NORMAL INSPECTION - Eye Exam Eye Exam: EOMI, Normal appearance - ENT Exam ENT Exam: Mucous Membranes Moist - Neck Exam Neck exam: Normal Inspection - Respiratory Exam Respiratory Exam: Clear to PA & Lateral, NORMAL BREATHING PATTERN, UNREMARKABLE - Cardiovascular Exam Cardiovascular Exam: RRR, +S1, +S2 - GI/Abdominal Exam GI & Abdominal Exam: Soft, Unremarkable. absent: Distended, Tenderness - Extremities Exam Extremities exam: normal inspection - Neurological Exam Neurological exam: Alert, Oriented x3 Additional comments: patient reports intermittent paresthesias of all limbs - Psychiatric Exam Psychiatric exam: Normal Affect, Normal Mood - Skin Skin Exam: Dry, Intact, Normal Color, Warm Discharge Plan - Discharge Medications Prescriptions: RX: Aspirin [Ecotrin] 81 mg PO DAILY #30 tabec RX: Atorvastatin Calcium 10 mg PO DAILY #30 tablet RX: Furosemide [Lasix] 20 mg PO DAILY #30 tab RX: Metoprolol Succinate XL [Toprol XL] 100 mg PO DAILY #30 tab RX: Pregabalin [Lyrica] 75 mg PO BID #60 cap RX: Valsartan/Hydrochlorothiazide [Valsartan-Hctz 160-12.5 mg Tab] 1 each PO DAILY #30 tablet - Follow Up Plan Condition: IMPROVED Disposition: HOME/ ROUTINE Patient education suggested?: Yes Instructions: DASH Diet, Multiple Sclerosis, Adult (DC), Pregabalin, Aspirin, Atorvastatin, Furosemide, Metoprolol, Valsartan, Hypertension (DC) Additional Instructions: Follow-up with you primary care provider, Dr. Garcia, within 3-5 days of discharge. Follow-up at the [facility]. You have an appointment on 05/31/18. If concerns or questions arise before this appointment, you may contact Dr. Schreiber's office. Take all medications as prescribed. You may resume your home medications. You will be given a new prescription for Lyrica (pregabalin). If symptoms recur, return to the nearest emergency department. Referrals: Jennifer Schreiber MD [Staff Provider] - Nicole Garcia MD [Staff Provider] - <Ranjana Ndiaye - Last Filed: 05/03/18 19:37> Provider - Provider Date of Admission: 04/30/18 14:59 Attending physician: Ranjana Ndiaye MD Consults: 04/30/18 15:42 Neurology Consult Routine Comment: Consulting Provider: Jennifer Schreiber Consulting Physician: Jennifer Schreiber Reason for Consult: MS exacerbation Hospital Course - Lab Results Lab Results: Most Recent Lab Values WBC 13.2 K/uL (4.8-10.8) H 05/03/18 06:50 RBC 4.04 Mil/uL (3.80-5.20) 05/03/18 06:50 Hgb 12.5 g/dL (11.0-16.0) 05/03/18 06:50 Hct 37.2 % (34.0-47.0) 05/03/18 06:50 MCV 92.1 fL (81.0-99.0) 05/03/18 06:50 MCH 31.0 pg (27.0-31.0) 05/03/18 06:50 MCHC 33.7 g/dL (33.0-37.0) 05/03/18 06:50 RDW 14.3 % (11.5-14.5) 05/03/18 06:50 Plt Count 208 K/uL (130-400) 05/03/18 06:50 MPV 11.2 fL (7.2-11.7) 05/03/18 06:50 Neut % (Auto) 92.0 % (50.0-75.0) H 05/03/18 06:50 Lymph % (Auto) 5.9 % (20.0-40.0) L 05/03/18 06:50 [place] % (Auto) 2.1 % (0.0-10.0) 05/03/18 06:50 Eos % (Auto) 0.0 % (0.0-4.0) 05/03/18 06:50 Baso % (Auto) 0.0 % (0.0-2.0) 05/03/18 06:50 Neut # (Auto) 12.1 K/uL (1.8-7.0) H 05/03/18 06:50 Lymph # (Auto) 0.8 K/uL (1.0-4.3) L 05/03/18 06:50 [place] # (Auto) 0.3 K/uL (0.0-0.8) 05/03/18 06:50 Eos # (Auto) 0.0 K/uL (0.0-0.7) 05/03/18 06:50 Baso # (Auto) 0.0 K/uL (0.0-0.2) 05/03/18 06:50 Neutrophils % (Manual) 90 % (50-75) H 05/03/18 06:50 Lymphocytes % (Manual) 7 % (20-40) L 05/03/18 06:50 Monocytes % (Manual) 3 % (0-10) 05/03/18 06:50 Platelet Estimate Normal (NORMAL) 05/03/18 06:50 Large Platelets Present 05/03/18 06:50 Sodium 139 mmol/L (132-148) 05/03/18 06:50 Potassium 3.9 mmol/L (3.6-5.2) 05/03/18 06:50 Chloride 101 mmol/L (98-107) 05/03/18 06:50 Carbon Dioxide 30 mmol/L (22-30) 05/03/18 06:50 Anion Gap 12 (10-20) 05/03/18 06:50 BUN 26 mg/dL (7-17) H 05/03/18 06:50 Creatinine 1.1 mg/dL (0.7-1.2) 05/03/18 06:50 Est GFR ( Amer) > 60 05/03/18 06:50 Est GFR (Non-Af Amer) 53 05/03/18 06:50 POC Glucose (mg/dL) 126 mg/dL (65-110) H 04/30/18 18:25 Random Glucose 158 mg/dL (65-105) H 05/03/18 06:50 Calcium 9.2 mg/dl (8.6-10.4) 05/03/18 06:50 Phosphorus 3.2 mg/dL (2.5-4.5) 05/03/18 06:50 Magnesium 2.5 mg/dL (1.6-2.3) H 05/03/18 06:50 Total Bilirubin 0.3 mg/dL (0.2-1.3) 05/03/18 06:50 AST 27 U/L (14-36) 05/03/18 06:50 ALT 17 U/L (9-52) 05/03/18 06:50 Alkaline Phosphatase 66 U/L (38-126) 05/03/18 06:50 Total Creatine Kinase 103 U/L (30-135) 04/30/18 23:24 CK-MB (Mass) 0.24 ng/mL (0.0-3.38) 04/30/18 23:24 Troponin I < 0.0120 ng/mL (0.00-0.120) 04/30/18 23:24 Total Protein 7.1 g/dL (6.3-8.3) 05/03/18 06:50 Albumin 4.2 g/dL (3.5-5.0) 05/03/18 06:50 Globulin 2.9 gm/dL (2.2-3.9) 05/03/18 06:50 Albumin/Globulin Ratio 1.5 (1.0-2.1) 05/03/18 06:50 Urine Color Yellow (YELLOW) 04/30/18 15:06 Urine Clarity Hazy (Clear) 04/30/18 15:06 Urine pH 8.0 (5.0-8.0) 04/30/18 15:06 Ur Specific [place] 1.021 (1.003-1.030) 04/30/18 15:06 Urine Protein 1+ mg/dL (NEGATIVE) H 04/30/18 15:06 Urine Glucose (UA) Normal mg/dL (Normal) 04/30/18 15:06 Urine Ketones Negative mg/dL (NEGATIVE) 04/30/18 15:06 Urine Blood Negative (NEGATIVE) 04/30/18 15:06 Urine Nitrate Negative (NEGATIVE) 04/30/18 15:06 Urine Bilirubin Negative (NEGATIVE) 04/30/18 15:06 Urine Urobilinogen 4.0 mg/dL (0.2-1.0) H 04/30/18 15:06 Ur Leukocyte Esterase Trace Fitz/uL (Negative) 04/30/18 15:06 Urine WBC (Auto) 4 /hpf (0-5) 04/30/18 15:06 Urine RBC (Auto) 3 /hpf (0-3) 04/30/18 15:06 Ur Squamous Epith Cells 22 /hpf (0-5) H 04/30/18 15:06 Urine Bacteria Rare (<OCC) 04/30/18 15:06 Hyaline Casts 0-2 /lpf (0-2) 04/30/18 15:06 Urine HCG, Qual Negative (NEGATIVE) 04/30/18 15:26 Urine Opiates Screen Negative (NEGATIVE) 04/30/18 15:06 Urine Methadone Screen Negative (NEGATIVE) 04/30/18 15:06 Ur Barbiturates Screen Negative (NEGATIVE) 04/30/18 15:06 Ur Phencyclidine Scrn Negative (NEGATIVE) 04/30/18 15:06 Ur Amphetamines Screen Negative (NEGATIVE) 04/30/18 15:06 U Benzodiazepines Scrn Negative (NEGATIVE) 04/30/18 15:06 U Oth Cocaine Metabols Negative (NEGATIVE) 04/30/18 15:06 U Cannabinoids Screen Negative (NEGATIVE) 04/30/18 15:06 Influenza Typ A,B (EIA) Negative for flu a/b (NEGATIVE) 04/30/18 15:56 Attending/Attestation - Attestation I have personally seen and examined this patient.: Yes I have fully participated in the care of the patient.: Yes I have reviewed all pertinent clinical information, including history, physical exam and plan: Yes Notes (Text): Seen and examined . Patient is stable for discharge. Discharge plan discussed
[2018-05-03 07:35] VITALS: BP 145/87; PULSE 71; TEMP 98; O2SAT 97
[2018-05-03 07:35] LABS: HEMOGLOBIN 12.5 g/dL (11.0-16.0); LYMPH # 0.8 K/uL (1.0-4.3); LYMPH % 5.9 % (20.0-40.0); MEAN CELL VOLUME 92.1 fL (81.0-99.0); MEAN CORPUSCULAR HGB CONC 33.7 g/dL (33.0-37.0); MEAN PLATELET VOLUME 11.2 fL (7.2-11.7); MONO # 0.3 K/uL (0.0-0.8); MONO % 2.1 % (0.0-10.0); NEUT # 12.1 K/uL (1.8-7.0); PLATELET COUNT 208 K/uL (130-400); RBC 4.04 Mil/uL (3.80-5.20); RED CELL DISTRIBUTION WIDTH 14.3 % (11.5-14.5); WHITE BLOOD COUNT 13.2 K/uL (4.8-10.8)
[2018-05-03 08:07] LABS: ALB/GLOB RATIO 1.5 (1.0-2.1); ALBUMIN 4.2 g/dL (3.5-5.0); ALT/SGPT 17 U/L (9-52); AST/SGOT 27 U/L (14-36); BLOOD UREA NITROGEN 26 mg/dL (7-17); CALCIUM 9.2 mg/dl (8.6-10.4); GFR NON-AFRICAN AMERICAN 53
[2018-05-03 08:49] LABS: LARGE PLATELETS PRESENT; LYMPHOCYTE 7 % (20-40); MONOCYTE 3 % (0-10); NEUTROPHIL 90 % (50-75); PLATELET ESTIMATE NORMAL (NORMAL); TOTAL CELLS COUNTED 100
[2018-05-03] MEDS ORDERED: Pneumococcal 23-Valent Vaccine IM ONE (10:00)
[2018-05-03] MEDS ORDERED: Influenza Vaccine 60 mcg/0.5 mL SYR (4YR UP) IM ONE (10:00)
[2018-05-03] MEDS: methylPREDNISolone 1 GM in Sodium Chloride 0.9% 250 ML IV SCH (10:10)
[2018-05-03] MEDS: Metoprolol Succinate 100 mg XL Tab PO SCH (10:13)
[2018-05-03] MEDS: Pantoprazole 40 mg EC Tab PO SCH (10:13)
[2018-05-03] MEDS: Enoxaparin 40 mg Syringe SC SCH (10:15)
== END 2018-05-03 13:58 | disposition home or self-care (01) | DRG 43 ==
LOC: C.ER 13:12 → C.9E 14:59 → C.3T 22:45
PROVIDERS: ADMIT Internal Medicine; ATTEND Internal Medicine
DX: G35 Multiple sclerosis (principal); R13.10 Dysphagia, unspecified; I10 Essential (primary) hypertension; J45.909 Unspecified asthma, uncomplicated; E78.5 Hyperlipidemia, unspecified; Z86.73 Personal history of transient ischemic attack (TIA), and cerebral infarction without residual deficits; Z98.891 History of uterine scar from previous surgery; Z79.82 Long term (current) use of aspirin; Z79.899 Other long term (current) drug therapy; Z80.3 Family history of malignant neoplasm of breast

== ENCOUNTER 2018-07-12 11:04 | Outpatient (CLI) | payer MEDICAID | END 2018-07-12 11:05 | disposition home or self-care (01) | LOC: C.MRIC 11:05 | DX: G35 Multiple sclerosis (principal) ==